=== PATIENT | male | born 1950 | race African-American/Black ===

== ENCOUNTER 2018-11-18 14:27 | Inpatient (IN) ==
[2018-11-18 10:28] LABS: HEMOGLOBIN 14.5 g/dL (14.0-18.0); MCH 32.4 PG (27-31); MCHC 33.7 g/dL (33-37); MPV 10.7 FL (7.4-10.4); RBC 4.48 XMIL (4.7-6.1); RDW 12.2 % (11.5-14.5); WBC 18.66 X1000 (4.8-10.8)
[2018-11-18 10:47] LABS: AGAP 13; BUN 26 mg/dL (8-22); CALCIUM 9.1 mg/dL (8.8-10.2); CHLORIDE 103 mmol/L (98-107); COSMO 285; CREATININE 1.4 mg/dL (0.7-1.2); ESTIMATED GFR > 60; GLUCOSE 141 mg/dL (70-104); SODIUM 139 mmol/L (136-145); TCO2 23 mmol/L (25-35)
[2018-11-18] MEDS ORDERED: ASPIRIN PO ONE (14:56)
--- NOTE | 2018-11-18 15:01 | EKG Report ---
Test Performed on : 11/18/2018 2:58:42 PM Test Reason : SOB Blood Pressure : / mmHG Vent. Rate : 140 BPM Atrial Rate : 140 BPM P-R Int : 118 ms QRS Dur : 134 ms QT Int : 308 ms P-R-T Axes : 073 251 043 degrees QTc Int : 470 ms Sinus tachycardia. Possible Left atrial enlargement Right bundle branch block Abnormal ECG When compared with ECG of 23-OCT-2018 08:41, Vent. rate has increased BY 69 BPM T wave inversion now evident in Anterior leads Nonspecific T wave abnormality no longer evident in Lateral leads Unconfirmed Result
[2018-11-18] MEDS ORDERED: VANCOMYCIN 1 GM/NS 1 GM/250 ML IVPB IV ONE (15:07)
[2018-11-18] MEDS ORDERED: NS 1,000 ML IV ONE ×2 (15:07→16:07)
[2018-11-18] MEDS ORDERED: NS 500 ML IV ONE (15:07)
--- NOTE | 2018-11-18 15:25 | Diag Imaging Result Doc PS360 ---
CHEST-1 VIEW - 11/18/2018 INDICATION: fever,sob COMPARISON: 02/12/2018 FINDINGS: Stable CABG changes. Stable ossified granuloma in the left lung base. No infiltrates or edema. Heart size is top normal. IMPRESSION: No acute disease or change from prior. Electronically signed by Bowen Garcia 11/18/2018 3:23 PM
[2018-11-18] MEDS ORDERED: TYLENOL PO ONE (15:43)
--- NOTE | 2018-11-18 15:43 | PROVIDER DOCUMENTATION ---
This chart was entered by Tamiko Munoz Scribe, acting as scribe for Martin Polk MD. HPI-Fever - General Chief Complaint: Fever Stated Complaint: fall Time Seen by Provider: 11/18/18 15:05 Source: patient, family, EMS Allergies/Adverse Reactions: Patient Allergies Allergy/AdvReac Type Severity Reaction Status Date / Time sulfamethoxazole Allergy Severe HIVES Verified 11/18/18 08:55 [From Bactrim] trimethoprim [From Bactrim] Allergy Severe HIVES Verified 11/18/18 08:55 Home Medications: Home Medication List Medication Instructions Recorded Confirmed Last Taken Type Aspirin 325 mg PO DAILY #0 tablet 11/20/13 11/18/18 10/28/18 08:00 Rx Hydralazine [Apresoline] 50 mg PO TID 07/11/16 11/18/18 10/29/18 05:30 History Levothyroxine [Synthroid] 150 microgm PO DAILY 07/11/16 11/18/18 10/28/18 08:00 History Meloxicam [Mobic] 15 mg PO DAILY 07/11/16 11/18/18 10/28/18 08:00 History Metoprolol Succinate E.r. [Toprol 50 mg PO BID 07/11/16 11/18/18 10/29/18 05:30 History Xl] PRAVAstatin [Pravachol] 80 mg PO QHS #90 tab 02/16/18 11/18/18 10/28/18 21:00 Rx Clopidogrel [Plavix] 75 mg PO DAILY 10/23/18 11/18/18 10/28/18 08:00 History Losartan/Hydrochlorothiazide 1 each PO DAILY 10/23/18 11/18/18 10/28/18 08:00 History [Losartan-Hctz 50-12.5 mg Tab] Hydrocodone/APAP 7.5 mg/325 mg 1 ea PO Q6H PRN PRN #10 tab 10/29/18 11/18/18 Unknown Rx [Capac-7.5] Cilostazol 50 mg PO DAILY 11/18/18 11/18/18 Unknown History - History of Present Illness-Fever Nature of Presenting Problem: 67 yom presents to ed with cc of fever of 102.5. Pt reports he fell out of bed this am and onto the floor. Pt reports he has a blood clot in left leg and is scheduled to get it removed tomorrow.. Reports sob. Fever Severity/Quality: reports: greater than 102 F Onset/Duration: reports: this morning Timing: reports: still present Severity: reports: moderate Review of Systems - Adult - REVIEW OF SYSTEMS - ADULT Constitutional: reports: chills, fever, other (diaphoresis). denies: fatique, weight gain, weight loss Eyes: reports: no symptoms reported Ears, Nose, Mouth & Throat: denies: ear pain, sinus problem, throat pain Cardiovascular: reports: palpitations (HR 146 on arrival). denies: chest pain, irregular heart rate, orthopnea, syncope Respiratory: reports: shortness of breath. denies: cough, dyspnea on exertion, pleurisy, wheezing Gastrointestinal: denies: abdominal pain, diarrhea, nausea, vomiting Genitourinary: denies: dysuria, discharge, flank pain, frequent UTI's, hematuria , urinary retention, urgency Musculoskeletal: denies: frequent leg cramps, joint pain, joint swelling, muscle aches, muscle weakness, neck pain Integumentary: reports: no symptoms reported Neurological: reports: no symptoms reported Psychiatric: reports: no symptoms reported Endocrine: denies: cold intolerance, heat intolerance, increased hunger Hematologic/Lymphatic: reports: see HPI, blood clots. denies: low blood count, lymphedema, prolonged bleeding, swollen lymph nodes Allergic/Immunologic: reports: no symptoms reported All Other Systems: Reviewed and Negative Past History - Adult - PAST MEDICAL HISTORY-ADULT Review of Records: reports: Nursing Assessment Review, Medications Reviewed Major Childhood Illnesses: reports: denies history Cardiovascular: reports: HTN, hyperlipidemia Respiratory: reports: denies history Gastrointestinal: reports: GERD Obstetrical/Gynecological: reports: denies history Genitourinary: reports: denies history Musculoskeletal: reports: chronic pain Neurological: reports: denies history Endocrine/Immune: reports: thyroid disorder Other Conditions: reports: denies history - PRIOR SURGERIES/PROCEDURES Surgical/Procedure History: reports: CABG, cardiac stent, other - IMMUNIZATION STATUS Childhood Immunizations: See Nurse Assessment Flu Vaccine: See Nurse Assessment - FAMILY HISTORY Family History: reviewed, not pertinent Physical Exam-General - PHYSICAL EXAM-ADULT Initial Vital Signs Reviewed: Yes - CONSTITUTIONAL General Appearance: appears well, alert, moderate distress, other (very diaphoretic) - EYES Eyes: PERRL/EOMI, pink conjunctivae - HEAD, EARS, NOSE, MOUTH & THROAT HENMT: moist mucous membranes - NECK Neck: non-tender, full range of motion, supple, normal inspection - RESPIRATORY Respiratory: chest non-tender, lungs clear, normal breath sounds, no pleuratic chest pain, no respiratory distress, no accessory muscle use - CARDIOVASCULAR Cardiovascular: tachycardia - GASTROINTESTINAL (ABDOMEN) Abdominal Exam: non tender, soft, no organomegaly, no pulsatile mass - MUSCULOSKELETAL Back Exam: normal inspection Extremity: normal range of motion, non-tender - SKIN Integumentary: normal color, normal turgor, diaphoresis - NEUROLOGIC Neurologic: grossly normal - PSYCHIATRIC Psych/Mental Status: normal mood/affect, normal thought content, normal thought process, oriented x 3 Progress - PLAN OF CARE/RESULTS Progress/Plan/Lab Results: Vital Signs - 8 hr 11/18/18 14:51 11/18/18 16:22 11/18/18 16:30 Temperature 102.0 F H Pulse Rate 146 H 114 H 113 H Respiratory Rate 22 23 25 H Blood Pressure 118/63 118/72 O2 Sat by Pulse Oximetry 97 95 91 L 11/18/18 16:32 11/18/18 16:40 11/18/18 16:47 Temperature Pulse Rate 122 H 113 H 111 H Respiratory Rate 34 H 28 H 22 Blood Pressure 122/65 102/60 O2 Sat by Pulse Oximetry 94 L 94 L 94 L 11/18/18 16:50 11/18/18 17:00 11/18/18 17:02 Temperature Pulse Rate 115 H 113 H 113 H Respiratory Rate 19 30 H 28 H Blood Pressure 138/80 O2 Sat by Pulse Oximetry 95 94 L 94 L 11/18/18 17:10 11/18/18 17:18 11/18/18 17:20 Temperature Pulse Rate 112 H 115 H 115 H Respiratory Rate 26 H 26 H 21 Blood Pressure 114/75 O2 Sat by Pulse Oximetry 93 L 91 L 91 L 11/18/18 17:30 11/18/18 17:32 11/18/18 17:40 Temperature Pulse Rate 105 H 112 H 113 H Respiratory Rate 25 H 30 H 28 H Blood Pressure 117/74 O2 Sat by Pulse Oximetry 95 93 L 92 L 11/18/18 17:47 11/18/18 17:50 11/18/18 17:57 Temperature 99.2 F Pulse Rate 110 H 108 H Respiratory Rate 22 23 Blood Pressure 129/76 O2 Sat by Pulse Oximetry 92 L 92 L 11/18/18 18:00 11/18/18 18:02 11/18/18 18:10 Temperature Pulse Rate 107 H 109 H 105 H Respiratory Rate 26 H 23 23 Blood Pressure 125/73 O2 Sat by Pulse Oximetry 96 94 L 95 11/18/18 17:58 Influenza Screen - Final Nasopharyngeal Laboratory Results - last 24 hr 11/18/18 11/18/18 11/18/18 14:35 15:10 15:32 WBC 11.34 H RBC 4.38 L Hgb 14.3 Hct 41.4 L MCV 94.5 MCH 32.6 H MCHC 34.5 RDW Std Deviation 12.2 Plt Count 203 MPV 10.8 H Immature Gran % (Auto) 0.3 Neut % (Auto) 92.1 H Lymph % (Auto) 5.0 L Mclean % (Auto) 2.5 Eos % (Auto) 0.1 Baso % (Auto) 0.0 Immature Gran # (Auto) 0.03 Neut # (Auto) 10.45 H Lymph # (Auto) 0.57 L Mclean # (Auto) 0.28 Eos # (Auto) 0.01 Baso # (Auto) 0.00 PT INR PTT (Actin FS) Specimen Type Sample Site pH pCO2 pO2 HCO3 Base Excess Oxyhemoglobin ABG O2 Sat (Calculated) ABG O2 Saturation ABG Carboxyhemoglobin ABG Methemoglobin Mike Test A-a O2 Difference Total Hemoglobin Lactate Liter Flow Blood Gas Modality FiO2 % Sodium Potassium Chloride Carbon Dioxide Anion Gap BUN Creatinine Estimated GFR/1.73 m2 BUN/Creatinine Ratio Glucose POC Glucose 194 H D Calculated Osmolality Calcium Total Bilirubin AST ALT Alkaline Phosphatase Creatine Kinase Troponin T Zln-U-Apezvbqvyna Pept Total Protein Albumin Globulin Albumin/Globulin Ratio Plasma Lactate 3.0 H Urine Source Urine Color Urine Turbidity Urine pH Ur Specific [place] Urine Protein Ur Glucose (Stick) Ur Ketones (Stick) Urine Blood Urine Nitrite Urine Bilirubin Urobilinogen Dipstick Urine Leukocytes Urine WBC (Auto) Urine RBC (Auto) U Epithel Cells (Auto) Urine Bacteria (Auto) 11/18/18 11/18/18 11/18/18 15:32 15:32 15:32 WBC RBC Hgb Hct MCV MCH MCHC RDW Std Deviation Plt Count MPV Immature Gran % (Auto) Neut % (Auto) Lymph % (Auto) Mclean % (Auto) Eos % (Auto) Baso % (Auto) Immature Gran # (Auto) Neut # (Auto) Lymph # (Auto) Mclean # (Auto) Eos # (Auto) Baso # (Auto) PT 14.8 INR 1.08 PTT (Actin FS) 29.5 Specimen Type Sample Site pH pCO2 pO2 HCO3 Base Excess Oxyhemoglobin ABG O2 Sat (Calculated) ABG O2 Saturation ABG Carboxyhemoglobin ABG Methemoglobin Mike Test A-a O2 Difference Total Hemoglobin Lactate Liter Flow Blood Gas Modality FiO2 % Sodium 139 Potassium 3.5 Chloride 104 Carbon Dioxide 19 L Anion Gap 16 BUN 30 H Creatinine 1.7 H Estimated GFR/1.73 m2 49 BUN/Creatinine Ratio 18 Glucose 190 H POC Glucose Calculated Osmolality 289 Calcium 9.4 Total Bilirubin 1.88 H AST 14 ALT 20 Alkaline Phosphatase 101 Creatine Kinase 191 Troponin T Hdd-C-Eeigxavuyhv Pept 324 H Total Protein 7.3 Albumin 4.2 Globulin 3.1 Albumin/Globulin Ratio 1.4 Plasma Lactate Urine Source Urine Color Urine Turbidity Urine pH Ur Specific [place] Urine Protein Ur Glucose (Stick) Ur Ketones (Stick) Urine Blood Urine Nitrite Urine Bilirubin Urobilinogen Dipstick Urine Leukocytes Urine WBC (Auto) Urine RBC (Auto) U Epithel Cells (Auto) Urine Bacteria (Auto) 11/18/18 11/18/18 11/18/18 15:32 15:40 16:35 WBC RBC Hgb Hct MCV MCH MCHC RDW Std Deviation Plt Count MPV Immature Gran % (Auto) Neut % (Auto) Lymph % (Auto) Mclean % (Auto) Eos % (Auto) Baso % (Auto) Immature Gran # (Auto) Neut # (Auto) Lymph # (Auto) Mclean # (Auto) Eos # (Auto) Baso # (Auto) PT INR PTT (Actin FS) Specimen Type ARTERIAL Sample Site R RADIAL pH 7.44 pCO2 29 L pO2 78 HCO3 22.3 Base Excess -3.2 L Oxyhemoglobin 94.0 L ABG O2 Sat (Calculated) 18.7 ABG O2 Saturation 96.9 ABG Carboxyhemoglobin 1.70 ABG Methemoglobin 1.2 Mike Test YES A-a O2 Difference 85.0 Total Hemoglobin 14.1 Lactate 1.80 Liter Flow 2.0 Blood Gas Modality CANNULA FiO2 % 28.0 Sodium Potassium Chloride Carbon Dioxide Anion Gap BUN Creatinine Estimated GFR/1.73 m2 BUN/Creatinine Ratio Glucose POC Glucose Calculated Osmolality Calcium Total Bilirubin AST ALT Alkaline Phosphatase Creatine Kinase Troponin T < 0.010 Mqm-N-Slkiyqnngcv Pept Total Protein Albumin Globulin Albumin/Globulin Ratio Plasma Lactate Urine Source CATH Urine Color ORANGE Urine Turbidity HAZY Urine pH 5.5 Ur Specific [place] 1.020 Urine Protein 100 A Ur Glucose (Stick) 500 A Ur Ketones (Stick) NEGATIVE Urine Blood MODERATE A Urine Nitrite NEGATIVE Urine Bilirubin NEGATIVE Urobilinogen Dipstick NORMAL Urine Leukocytes LARGE A Urine WBC (Auto) TNTC A Urine RBC (Auto) <10 U Epithel Cells (Auto) <10 Urine Bacteria (Auto) 4+ 11/18/18 18:06 WBC RBC Hgb Hct MCV MCH MCHC RDW Std Deviation Plt Count MPV Immature Gran % (Auto) Neut % (Auto) Lymph % (Auto) Mclean % (Auto) Eos % (Auto) Baso % (Auto) Immature Gran # (Auto) Neut # (Auto) Lymph # (Auto) Mclean # (Auto) Eos # (Auto) Baso # (Auto) PT INR PTT (Actin FS) Specimen Type Sample Site pH pCO2 pO2 HCO3 Base Excess Oxyhemoglobin ABG O2 Sat (Calculated) ABG O2 Saturation ABG Carboxyhemoglobin ABG Methemoglobin Mike Test A-a O2 Difference Total Hemoglobin Lactate Liter Flow Blood Gas Modality FiO2 % Sodium Potassium Chloride Carbon Dioxide Anion Gap BUN Creatinine Estimated GFR/1.73 m2 BUN/Creatinine Ratio Glucose POC Glucose Calculated Osmolality Calcium Total Bilirubin AST ALT Alkaline Phosphatase Creatine Kinase Troponin T Say-V-Arzuajmokbe Pept Total Protein Albumin Globulin Albumin/Globulin Ratio Plasma Lactate 1.4 Urine Source Urine Color Urine Turbidity Urine pH Ur Specific [place] Urine Protein Ur Glucose (Stick) Ur Ketones (Stick) Urine Blood Urine Nitrite Urine Bilirubin Urobilinogen Dipstick Urine Leukocytes Urine WBC (Auto) Urine RBC (Auto) U Epithel Cells (Auto) Urine Bacteria (Auto) Orders Category Date Time Status Admit - [facility] Routine AdmDCTranf 11/18/18 18:12 Active Cardiac Monitoring DIRECTED Care 11/18/18 14:57 Active [place] Insertion ORDERED Care 11/18/18 15:07 Inactive IV Insertion ORDERED Care 11/18/18 15:06 Completed Intake and Output-Strict ORDERED Care 11/18/18 15:07 Active Notify MD of + Sepsis Screen NOW Care 11/18/18 15:06 Active Notify Physician As Ordered Care 11/18/18 15:06 Active Oxygen Therapy- ED Nursing DIRECTED Care 11/18/18 14:57 Active Repeat Vital Signs .Blood Pressure Care 11/18/18 15:07 Active Repeat Vital Signs .Heart Rate Care 11/18/18 15:07 Active Repeat Vital Signs .Oxygen Saturation Care 11/18/18 15:07 Active Repeat Vital Signs .Respiratory Rate Care 11/18/18 15:07 Active Repeat Vital Signs .Temp Care 11/18/18 15:07 Active Resuscitation Status Routine Care 11/18/18 18:12 Ordered Saline Loc NOW Care 11/18/18 14:57 Active CHEST-1 VIEW [RAD] Stat Exams 11/18/18 15:06 Completed ABG [RESP] Routine Lab 11/18/18 15:40 Completed BLOOD CULTURE [BLDCUL] Stat Lab 11/18/18 15:15 Results CBC WITH ELECTRONIC DIFF [HEME] Stat Lab 11/18/18 15:32 Completed CK PROFILE [SP CHEM] Stat Lab 11/18/18 15:32 Completed COMPREHENSIVE METABOLIC PANEL [CHEM] Stat Lab 11/18/18 15:32 Completed INFLUENZA SCREEN A/B Stat Lab 11/18/18 17:58 Completed LACTATE, PLASMA [CHEM] Lab 11/18/18 18:06 Completed LACTATE, PLASMA [CHEM] Lab 11/18/18 21:15 Uncollected LACTATE, PLASMA [CHEM] Stat Lab 11/18/18 15:10 Completed PRO B-NATRIURETIC PEPTIDE Stat Lab 11/18/18 15:32 Completed PROTIME WITH INR [COAG] Stat Lab 11/18/18 15:32 Completed PTT [COAG] Stat Lab 11/18/18 15:32 Completed TROPONIN T Stat Lab 11/18/18 15:32 Completed URINALYSIS W/POSS RFLX CULT [URINALYSIS] Stat Lab 11/18/18 16:35 Completed URINE CULTURE [RM] Routine Lab 11/18/18 17:23 Received 0.9% Sodium Chloride Inj [Ns] 1,000 ml Med 11/18/18 16:07 Discontinued IV 999 mls/hr 0.9% Sodium Chloride Inj [Ns] 1,000 ml Med 11/18/18 15:07 Discontinued IV As Directed 0.9% Sodium Chloride Inj [Ns] 500 ml Med 11/18/18 15:07 Discontinued IV 999 mls/hr Acetaminophen [Tylenol] Med 11/18/18 15:43 Discontinued 650 mg PO NOW ONE Aspirin Med 11/18/18 14:56 Discontinued 325 mg PO NOW ONE Piperacillin/Tazobactam [Zosyn] 3.375 gm Med 11/18/18 16:08 Discontinued 0.9% Sodium Chloride Inj [Ns] 50 ml IV NOW Vancomycin 1 gm/Ns Med 11/18/18 15:07 Discontinued 1 gm in 250 ml IV NOW CP/SOB/Palp >45 yrs of Age Stat Oth 11/18/18 14:56 Ordered Oxygen Device Stat Oth 11/18/18 15:06 Completed EKG [EKG] Stat Ther 11/18/18 14:57 Draft Transfer/Admit Order [TRANSFER] Routine Transfer 11/18/18 18:[address] Rodrigo dejesus at [id number] Result Diagrams: 11/18/18 15:32 11/18/18 15:32 - EKG 1 Time of EKG reading by physician:: 14:58 EKG Read and Signed by:: Martin Polk EKG Interpretation (*Must complete 3 of following elements*): Abnormal (poss lae ) Rate: 140 Rhythm: sinus tachy Cyril: normal QRS: RBB VT Interval: normal - XRAY 1 XRAY: Bilateral XRAY Study: Chest Impression: Normal (IMPRESSION: No acute disease or change from prior. Electronically signed by Bowen Garcia 11/18/2018 3:23 PM) Departure - Departure Date of Disposition Decision: 11/18/18 Time of Disposition Decision: 17:50 DIAGNOSIS: Sepsis, UTI (urinary tract infection), Renal insufficiency Disposition: ADMITTED INPATIENT 09 Certified Medical Emergency: Emergent Condition: Stable Referrals and Follow-Ups: Pete Wallace MD [Primary Care Provider] - - Critical Care Note This patient required my direct & personal management of CC.: Yes Total Time (mins): 45 Critical Care Statement: This patient required my direct personal management to treat or rule out processes, the absence of which, could potentiallly result in sudden, clinically significant life or limb threatening deterioration. Attestation - Physician/ MONIQUE Attestation Patient care was provided by Advanced Practice Provider:: No The physician spent face to face time with patient:: Yes Advanced Practice Provider documentation review:: Supervising physician onsite and consulted in the evaluation and care of this patient. The physician did have a face to face encounter with the patient. Sepsis: Tissue Perfusion Assmt - Physical Exam Assessment Date: 11/18/18 Time Assessment Initialized: 18:30 Vital Signs: Last Vital Signs Temp 99.2 F 11/18/18 17:57 Pulse 105 H 11/18/18 18:10 Resp 23 11/18/18 18:10 BP 125/73 11/18/18 18:02 Pulse Ox 95 11/18/18 18:10 Height 6 ft Weight 95.254 kg Lung Sounds:: lungs clear Heart Sounds:: Regular Capillary Refill Time: Less Than 2 Seconds Peripheral Pulse Evaluation:: radial (R): 2+, radial (L): 2+ Skin Exam:: turgor good - Impression Impression:: Tissue Perfusion Adequate This chart was documented by the indicated scribe, (Tamiko Munoz Scribe) and accurately reflects the services I performed and decisions made by me, Martin Polk MD, as attested by the provider's signature.
[2018-11-18 15:50] LABS: ALLEN TEST YES; BE -3.2 mmoll (-3.0-3.0); BLOOD TYPE ARTERIAL; HCO3-(ACT) 22.3 mmoll (20.0-26.0); METHB 1.2 % (0.0-1.5); O2(CT) 18.7 mL/dL (15.0-23.0); PCO2(98.6) 29 mmHg (35-45); PO2(98.6) 78 mmHg (60-100); SAMPLE BLOOD; SAO2 96.9 % (95.0-100.0); THB 14.1 g/dL (11.5-17.4); pH(98.6) 7.44 (7.35-7.45)
[2018-11-18 15:53] LABS: MODALITY CANNULA
[2018-11-18 15:56] LABS: EOS# 0.01 X1000 (0.0-0.7); EOS% 0.1 % (0.0-10.0); HEMATOCRIT 41.4 % (42.0-52.0); HEMOGLOBIN 14.3 g/dL (14.0-18.0); IMM GRAN# 0.03 X1000 (0.0-0.04); IMM GRAN% 0.3 % (0.0-0.5); LYMPH# 0.57 X1000 (1.2-3.4); MCH 32.6 PG (27-31); MCHC 34.5 g/dL (33-37); MCV 94.5 FL (81-99); MONO# 0.28 X1000 (0.11-0.59); MONO% 2.5 % (1.7-9.3); MPV 10.8 FL (7.4-10.4); NEUT# 10.45 X1000 (1.4-6.5); NEUT% 92.1 % (42.2-75.2); PLT 203 X1000 (130-400); RBC 4.38 XMIL (4.7-6.1); RDW 12.2 % (11.5-14.5); WBC 11.34 X1000 (4.8-10.8)
[2018-11-18 16:00] LABS: INR 1.08; PROTIME 14.8 Seconds (11.0-16.0)
[2018-11-18 16:01] LABS: PTT 29.5 Seconds (22.3-41.8)
[2018-11-18] MEDS ORDERED: ZOSYN 3.375 GM in NS 50 ML IV ONE (16:08)
[2018-11-18 16:14] LABS: ALB/GLOB RATIO 1.4; ALBUMIN 4.2 g/dL (3.5-5.0); CALCIUM 9.4 mg/dL (8.8-10.2); CREATININE 1.7 mg/dL (0.7-1.2); POTASSIUM 3.5 mmol/L (3.5-5.1); TOTAL BILIRUBIN 1.88 mg/dL (0.20-1.00); TOTAL PROTEIN 7.3 g/dL (6.3-8.3)
[2018-11-18 17:03] LABS: URINE SOURCE CATH
[2018-11-18 17:09] LABS: BILIRUBIN URINE NEGATIVE (NEGATIVE); BLOOD URINE MODERATE (NEGATIVE); COLOR ORANGE; GLUCOSE URINE 500 mg/dL (NEGATIVE); KETONE URINE NEGATIVE (NEGATIVE); LEUKOCYTES URINE LARGE (NEGATIVE); NITRITE URINE NEGATIVE (NEGATIVE); PH URINE 5.5; PROTEIN URINE 100 mg/dL (NEGATIVE); TURBIDITY URINE HAZY (CLEAR); UROBILINOGEN URINE NORMAL (NORMAL)
[2018-11-18 17:10] LABS: UR EPITHELIAL CELLS <10 /HPF (<10); URINE BACTERIA 4+ /HPF; URINE RBC <10 /HPF (<10); URINE WBC TNTC /HPF (<10)
--- NOTE | 2018-11-18 23:45 | HISTORY AND PHYSICAL ---
CHIEF COMPLAINT: Fever, fall, near-syncope. HISTORY OF PRESENT ILLNESS: A 66-year-old male, brought into the ER with a fever of 102. He almost had near-syncope. He had recently right leg peripheral arterial disease. Workup done by Dr. Adler. Anyhow, he had a white cell count, probable UTI. Influenza infection was ruled out. He was dehydrated. He was tachycardic. Hemodynamics were stable. He was seen in the emergency room. He was admitted to the hospital with near syncope due to hypotension due to UTI, probably prostatitis. As a result, a hospital admission was warranted. The patient was seen by Dr. Adler for peripheral arterial disease on 10/29/2018. He had a right popliteal occlusion, with claudication. Waiting for a bypass surgery. Venous mapping was done. It has been scheduled on Saturday. Anyhow, he needs to be worked up for his UTI. Discussed with family at bedside. As a result, a hospital admission was warranted. PAST MEDICAL HISTORY: Aneurysm of abdominal aorta at 2.8 cm. Carotid artery stenosis, right side, 60%. CAD, hypertension, hypothyroidism. Nicotine abuse. Peripheral arterial disease. Bilateral popliteal occlusion, right worse than left side. Hyperlipidemia. Elevated PSA. Right lacunar stroke in 2018, PAST SURGICAL HISTORY: C-spine surgery, back surgery, right foot surgery, cardiac stent in the circumflex artery. 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 Status post right plantar wart excision. Bypass surgery in 2013. MEDICATIONS: In my office: Aspirin 325 daily, Pletal 50 p.o. b.i.d., Plavix 75 daily, hydralazine 50 three times daily. Hyzaar 50/12.5 daily. Metoprolol 50 mg daily. Mobic 15 daily. Protonix 40 daily. Pravachol 40 daily. Synthroid 150 mcg daily. Tramadol 50 t.i.d. ALLERGIES: Bactrim. SOCIAL HISTORY: , 5 children. Lives in [place]. Retired. Quit smoking in 2013. No alcohol. No drug abuse. FAMILY HISTORY: Father at the age of 78. Mom of diabetic complications at 63. HEALTH MAINTENANCE: Flu vaccine refused. Last physical exam in December 2017. Colonoscopy was declined. PHYSICAL EXAMINATION: VITAL SIGNS: Temperature is 102 degrees, tachycardic. Hemodynamics were stable. He was extremely diaphoretic at the time of presentation. HEENT: Atraumatic, normocephalic. Pupils equal, react to light. TMs normal. Nose and throat within normal limits. NECK: Supple. No lymphadenopathy. No goiter. CHEST: Bilateral air entry. HEART: Sounds are regular. ABDOMEN: Belly is soft, nontender. Good bowel sounds. RECTAL: Deferred. EXTREMITIES: Decreased pulses on both sides. No signs of gangrene. No obvious neurological deficits. INVESTIGATIONS: White cell count 11, hematocrit 41, platelets 203,000. PT/INR is normal. ABG: pH is 7.44, pCO2 29, PO2 78 on 28%. SMA-7: BUN 30, creatinine 1.7, glucose 194. LFTs were normal. Urinalysis positive for infection. Blood cultures: Flu was pending. Blood cultures are pending. ASSESSMENT AND PLAN: 1. A 67-year-old male who came in with a fever 102, leukocytosis, with hypertension and near-syncope due to urinary tract infection. Rule out prostatitis. Plan is IV ceftriaxone. Unable to take Bactrim. We will check the PSA. 2. Dehydration. IV fluids. 3. Reconcile home medicines. 4. Deep vein thrombosis and gastrointestinal prophylaxis. As per the order sheet, with Lovenox and Protonix. 5. Coronary artery disease, status post bypass surgery. Currently, on aspirin and nitroglycerin. Continue to abstain from smoking. 6. Hypertension, on a combination of metoprolol, Hyzaar, and hydralazine. 7. Hyperlipidemia, on Pravachol 80. Last LDL 98. 8. Hypothyroidism, on Synthroid. 9. Elevated PSA. Previous biopsy was negative in 12/2015, done by Dr. Ying. 10. Bilateral calf pain due to claudication from the popliteal artery occlusion. Once he is stable, we will ask Dr. Adler to do the surgery on Saturday. 11. We will reconcile home medicines, and also health maintenance. Discussed with the family at bedside. We will follow up. cc: Gurwinder Wallace MD
[2018-11-19] MEDS: SODIUM CHLORIDE 0.9% INJ SCH (01:40)
[2018-11-19] MEDS: LOVENOX SUBQ SCH (01:41)
[2018-11-19] MEDS: NS 1,000 ML IV SCH ×2 (01:41→16:09)
[2018-11-19] MEDS: PROTONIX IV SCH (01:41)
[2018-11-19] MEDS: ROCEPHIN 1 GM in NS 50 ML IV SCH (01:41)
[2018-11-19] MEDS: HUMALOG SUBQ SCH ×3 (06:00→21:34)
[2018-11-19] MEDS: SYNTHROID PO SCH (06:00)
[2018-11-19 07:13] LABS: HEMATOCRIT 37.2 % (42.0-52.0); HEMOGLOBIN 12.5 g/dL (14.0-18.0); MCHC 33.6 g/dL (33-37); MCV 98.2 FL (81-99); MPV 10.6 FL (7.4-10.4); RBC 3.79 XMIL (4.7-6.1); RDW 12.6 % (11.5-14.5); WBC 16.36 X1000 (4.8-10.8)
[2018-11-19 07:19] LABS: HEMOGLOBIN A1C 5.1 % (4.8-6.0)
--- NOTE | 2018-11-19 07:38 | EKG Report ---
Test Performed on : 11/19/2018 06:57:08 AM Test Reason : cp Blood Pressure : / mmHG Vent. Rate : 071 BPM Atrial Rate : 071 BPM P-R Int : 162 ms QRS Dur : 148 ms QT Int : 464 ms P-R-T Axes : 076 014 048 degrees QTc Int : 504 ms Normal sinus rhythm. Possible Left atrial enlargement Right bundle branch block Abnormal ECG When compared with ECG of 18-NOV-2018 14:58, (Unconfirmed) Vent. rate has decreased BY 69 BPM QRS axis shifted right T wave inversion no longer evident in Anterior leads T wave amplitude has decreased in Lateral leads Confirmed by Michael LAZCANO, Star Morales ([id number]) on 11/19/2018 8:42:33 AM
[2018-11-19 07:48] LABS: AGAP 11; BUN 25 mg/dL (8-22); CHLORIDE 108 mmol/L (98-107); CK PROFILE 358 U/L (24-204); COSMO 282; CREATININE 1.1 mg/dL (0.7-1.2); ESTIMATED GFR > 60; GLUCOSE 95 mg/dL (70-104); POTASSIUM 4.3 mmol/L (3.5-5.1); SODIUM 139 mmol/L (136-145); TCO2 20 mmol/L (25-35)
[2018-11-19 08:31] LABS: CK INDEX 1.3 (0.0-2.5); CK-MB 4.66 ng/mL (0.0-5.0)
[2018-11-19] MEDS ORDERED: ASPIRIN PO SCH (09:00)
[2018-11-19] MEDS: TOPROL XL PO SCH ×2 (11:11→21:35)
[2018-11-19] MEDS: PLAVIX PO SCH (11:11)
--- NOTE | 2018-11-19 11:29 | CONSULTATION ---
DATE OF CONSULTATION: 11/19/2018 IMPRESSION: 1. Atherosclerotic coronary disease with history of previous coronary bypass grafting 2013. Patient has had no recurrence of angina. 2. Currently admitted with urinary tract infection with recent fever and malaise as well as near syncopal episode. Evaluation has demonstrated evidence of urinary tract infection. This may be related to Johnston catheter placed last month. 3. Peripheral vascular disease. Patient has reportedly bilateral popliteal occlusion worse on the right and has failed percutaneous efforts to revascularize. He has been scheduled for surgical revascularization of the right lower extremity. Preoperative cardiac risk assessment requested. 4. History of lacunar cerebrovascular accident 1 year ago with no residual deficit. 5. Atherosclerotic carotid disease with moderate right carotid artery stenosis. 6. Hypertension. 7. Hyperlipidemia. RECOMMENDATIONS: 1. Echocardiography. 2. Continue medical management of patient's coronary atherosclerosis. 3. Patient appears to be acceptable risk from a cardiac standpoint for right lower extremity revascularization procedure. HISTORY: This 66-year-old -[place] male a past history of previous coronary bypass surgery in 2013, hypertension, hyperlipidemia, peripheral vascular disease, and previous lacunar cerebrovascular accident in 2018, was admitted after he presented with recent malaise and fever. He had a near syncopal episode. He was found to have evidence of urinary tract infection and has been started on parental antibiotics. Cardiology consultation was requested for preoperative cardiac risk assessment, as he is being scheduled for elective right lower extremity revascularization surgery in the near future. He has history of peripheral vascular disease and significant stenosis in both popliteal arteries. Percutaneous efforts to revascularize his right lower extremity last month were unsuccessful. During that effort, he did have a Johnston catheter. He has been scheduled for right lower extremity revascularization surgery next week. However, he developed malaise and fever and had near syncopal episode prompting him to come in hospital this admission. There has been no recurrence of angina since his coronary bypass surgery. He denies any shortness of breath or orthopnea. PAST MEDICAL HISTORY: 1. Atherosclerotic coronary disease as outlined above. 2. Peripheral vascular disease. 3. Moderate right carotid artery stenosis. 4. Hypertension. 5. Hyperlipidemia. 6. Hypothyroidism. 7. Previous right lacunar stroke, 2018. 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 ALLERGIES: He is allergic or intolerant to Bactrim. MEDICATIONS PRIOR TO ADMISSION: As listed. SOCIAL HISTORY: He is . He lives in [place]. He quit smoking in 2013. He does not use alcohol. FAMILY HISTORY: Negative for premature coronary disease and positive for diabetes mellitus. REVIEW OF SYSTEMS: Pulmonary: Negative. Gastrointestinal: Negative. Constitutional: Noteworthy for fever, but otherwise negative. Remainder of review of systems negative/noncontributory with 14 total systems reviewed. PHYSICAL EXAMINATION: General: This is a pleasant, older, middle-aged -[place]ian male in no distress. Vital Signs: Blood pressure 155/78, heart rate 78 and regular, oxygen saturation 100% on room air. HEENT: Extraocular movements appear intact. Mucous membranes moist. Neck: Supple without jugular venous distention. There are no carotid bruits. Chest: Clear to auscultation bilaterally. Cardiac: Reveals a regular rate and rhythm without appreciable murmur, rub, or gallop. Abdomen: Soft. Bowel sounds audible. Abdomen is nontender. Extremities: Without edema. Pedal pulses are difficult to palpate bilaterally. Neurologic: Reveals him to be alert and fully oriented. Speech is fluent and moves all 4 extremities equally well. Skin: Warm and dry. Psychiatric: Reveals mood to be appropriate. ELECTROCARDIOGRAM: A 12-lead EKG demonstrates sinus tachycardia, left atrial abnormality, and right bundle- branch block. Repeat 12 lead EKG demonstrates normal sinus rhythm, left atrial abnormality, and right bundle-branch block. LABORATORY DATA: Includes a white blood cell count 16.36, hematocrit 37.2, hemoglobin 12.5, platelet count 172,000. Sodium 139, potassium 4.3, chloride 108, carbon dioxide 20, BUN 25, creatinine 1.1. Troponin less 0.01. Urinalysis with large amount of leukocytes. Chest x-ray reviewed and demonstrates no acute process. There is no evidence of pulmonary infiltrate. Heart size is upper normal. cc: MD Gurwinder Glaser MD
[2018-11-19 13:51] LABS: CK INDEX 1.3 (0.0-2.5); CK-MB 6.42 ng/mL (0.0-5.0)
--- NOTE | 2018-11-19 16:53 | ECHO REPORT ---
ORDER DATE: 11/19/2018 ECHOCARDIOGRAPHY: INDICATIONS: Coronary disease, history of bypass, hyperthyroidism, hypertension, surgery evaluation. FINDINGS: 1. The right atrium is mildly enlarged at 4 cm. 2. Mild tricuspid regurgitation. RV systolic pressure of 39. 3. Normal RV size and systolic function. 4. Mild pulmonic insufficiency. 5. Mild left atrial enlargement with a volume index of 29. 6. No mitral valve prolapse. Mild mitral regurgitation. 7. Normal LV size. End-diastolic dimension of 4.4 cm. Mild left ventricular hypertrophy with posterior and interventricular septal wall thickness of 1.4 cm each. Normal LV systolic function. Estimated EF of 60% to 65% with normal wall motion. 8. The aortic valve opens well. No evidence of stenosis or insufficiency. 9. The aorta appears somewhat enlarged at the root with a dimension of 4 cm. 10. No pericardial effusion seen. cc: MD Savanah Eric PA Jagan Reddy, MD
[2018-11-20] MEDS: SODIUM CHLORIDE 0.9% INJ SCH (01:02)
[2018-11-20] MEDS: PROTONIX IV SCH (01:02)
[2018-11-20] MEDS: LOVENOX SUBQ SCH (01:02)
[2018-11-20] MEDS: ROCEPHIN 1 GM in NS 50 ML IV SCH (01:02)
--- NOTE | 2018-11-20 01:05 | PROGRESS NOTE ---
DATE: 11/19/2018 SUBJECTIVE: The patient has apparently had a Johnston placed during the last admission, and he had a urinary tract infection. He denies of any other complaints. PHYSICAL EXAMINATION: On examination, temperature is 99.4 degrees, pulse is 78, blood pressure 115/78. HEENT: Within normal limits. Neck: Supple. JVD is not elevated. Chest: Clear to auscultation. Heart: Sounds are regular. Abdomen: Belly is soft, nontender. Good bowel sounds. Extremities: No signs of gangrene noted. Decreased pulses in the right leg. INVESTIGATIONS: CBC: White cell count 16.36, hematocrit 37, platelets 172,000. SMA-7: Sodium 139, potassium 4.3, chloride 108, BUN 25, creatinine 1.1, glucose 153. Cardiac index is negative. Troponin was negative. Urinalysis positive for infection. Cultures are growing gram-negative rods. ASSESSMENT AND PLAN: 1. Fever, leukocytosis, urinary tract infection due to indwelling Johnston catheter. Currently receiving IV ceftriaxone, and follow up on culture and sensitivity. Based on that, antibiotics will be adjusted. 2. Acute azotemia due to dehydration. IV fluids. Creatinine is coming down. 3. Right leg ischemia. Waiting for bypass surgery on Saturday. Dr. Adler wants a preop clearance, and we will consult Dr. Solis. 4. History of coronary artery disease with bypass surgery, currently stable on secondary prevention with aspirin, Plavix, and beta-blockers. 5. Deep venous thrombosis prophylaxis, on Lovenox. 6. Hypothyroidism, on Synthroid. 7. Hyperlipidemia, on pravastatin 80 mg daily. 8. Slowly reconcile home medications. I am going to restart blood pressure medicine once his hemodynamics are stable and will follow up on the labs in the morning. LEVEL OF DOCUMENTATION: 25 minutes. cc: Gurwinder Wallace MD
[2018-11-20] MEDS: NS 1,000 ML IV SCH ×2 (05:30→14:45)
[2018-11-20] MEDS: HUMALOG SUBQ SCH ×3 (06:30→20:16)
[2018-11-20] MEDS: SYNTHROID PO SCH (06:30)
[2018-11-20 07:09] LABS: HEMATOCRIT 39.4 % (42.0-52.0); HEMOGLOBIN 13.2 g/dL (14.0-18.0); MCH 32.5 PG (27-31); MCHC 33.5 g/dL (33-37); MPV 10.3 FL (7.4-10.4); RBC 4.06 XMIL (4.7-6.1); RDW 12.4 % (11.5-14.5); WBC 9.7 X1000 (4.8-10.8)
--- NOTE | 2018-11-20 07:19 | EKG Report ---
Test Performed on : 11/20/2018 07:07:08 AM Test Reason : known CAD Blood Pressure : / mmHG Vent. Rate : 064 BPM Atrial Rate : 064 BPM P-R Int : 158 ms QRS Dur : 152 ms QT Int : 478 ms P-R-T Axes : 063 -12 021 degrees QTc Int : 493 ms Normal sinus rhythm. Possible Left atrial enlargement Right bundle branch block Inferior infarct , age undetermined Abnormal ECG When compared with ECG of 19-NOV-2018 06:57, Inferior infarct is now present Confirmed by Michael LAZCANO, Star Morales ([id number]) on 11/21/2018 9:20:24 AM
[2018-11-20 07:40] LABS: AGAP 12; BUN 21 mg/dL (8-22); CALCIUM 8.1 mg/dL (8.8-10.2); CHLORIDE 106 mmol/L (98-107); COSMO 281; ESTIMATED GFR > 60; GLUCOSE 108 mg/dL (70-104); POTASSIUM 3.5 mmol/L (3.5-5.1); SODIUM 139 mmol/L (136-145); TCO2 21 mmol/L (25-35)
[2018-11-20] MEDS: TOPROL XL PO SCH ×2 (09:23→20:16)
[2018-11-20] MEDS: PLETAL PO SCH (09:23)
[2018-11-20] MEDS: PLAVIX PO SCH (09:23)
[2018-11-20] MEDS: ASPIRIN PO SCH (09:23)
[2018-11-20] MEDS: PRAVACHOL PO SCH (20:16)
--- NOTE | 2018-11-20 20:35 | PROGRESS NOTE ---
DATE: 11/20/2018 CARDIOLOGY FOLLOWUP NOTE: SUBJECTIVE: Patient continues without chest discomfort or shortness of breath. He relates feeling better. OBJECTIVE: Vital Signs: Blood pressure 156/82, heart rate 65, oxygen saturation 98% on room air. Chest: Clear to auscultation. Cardiac: Reveals a regular rate and rhythm without appreciable murmur or gallop. There is no peripheral edema. LABORATORY DATA: Includes a white blood cell count of 9.7, hematocrit 39.4, hemoglobin 13.2, platelet count 225,000. Sodium 139, potassium 3.5, chloride 106, carbon dioxide 21, BUN 21, creatinine 1.0, glucose 108. Initial troponin less than 0.01. Followup troponin less than 0.01. Echocardiography reports normal left ventricular ejection fraction. IMPRESSION: 1. Atherosclerotic coronary disease with history of previous coronary bypass graft in 2013. Patient continues without angina. 2. Currently admitted with urinary tract infection with associated fever, malaise and near syncopal episode. 3. Peripheral vascular disease. Patient has bilateral popliteal artery severe occlusive disease worse on the right which failed percutaneous efforts to revascularize. He is scheduled for surgical revascularization of the right lower extremity. 4. Previous lacunar cerebrovascular accident approximately 1 year ago with no residual defect. 5. Atherosclerotic carotid disease with moderate right carotid artery stenosis. 6. Hypertension. 7. Hyperlipidemia. RECOMMENDATIONS: 1. Continue medical management for patient's coronary atherosclerosis. He appears to be clinically stable from a standpoint of his coronary disease. 2. He should be acceptable perioperative cardiac risk for surgical revascularization of right lower extremity as planned. 3. Will see patient further on an as-needed basis. cc: MD Gurwinder Glaser MD MTDD
--- NOTE | 2018-11-20 22:46 | PROGRESS NOTE ---
DATE: 11/20/2018 SUBJECTIVE: The patient is a little better. I appreciated Dr. Solis's consult. He is much improved. PHYSICAL EXAMINATION: Vital Signs: Temperature is 98. Hemodynamics were stable. HEENT: Exam within normal limits. Neck: Supple. No lymphadenopathy. Chest: Clear. Heart: Sounds are regular. Extremities: No signs of gangrene noted. LABORATORY STUDIES: Unfortunately, he has E. coli in the urine, as well as in the blood. He has 2 blood cultures that are positive, and sensitive to Levaquin. ESBL negative. ASSESSMENT AND PLAN: 1. Urosepsis, due to indwelling Johnston catheter. Continue on IV ceftriaxone, sensitive to ESBL, negative to E. coli. Clinically, he is improving. 2. Peripheral arterial disease in the right leg. Waiting for bypass surgery on Saturday. Dr. Adler is going to plan to do, and Dr. Quinton Solis has already cleared for preop. Stable. Hopefully, by Saturday he will be ready. Will repeat the blood cultures on Saturday. Continue present medical regimen. LEVEL OF DOCUMENTATION: 25 minutes. cc: Gurwinder Wallace MD
[2018-11-21] MEDS: PROTONIX IV SCH (02:00)
[2018-11-21] MEDS: LOVENOX SUBQ SCH (02:00)
[2018-11-21] MEDS: ROCEPHIN 1 GM in NS 50 ML IV SCH (02:00)
[2018-11-21] MEDS: NS 1,000 ML IV SCH ×2 (03:00→09:46)
[2018-11-21] MEDS: HUMALOG SUBQ SCH ×4 (06:42→20:58)
[2018-11-21] MEDS: SYNTHROID PO SCH (06:42)
[2018-11-21 07:13] LABS: HEMATOCRIT 37.1 % (42.0-52.0); HEMOGLOBIN 12.5 g/dL (14.0-18.0); MCH 32.6 PG (27-31); MCHC 33.7 g/dL (33-37); MCV 96.9 FL (81-99); MPV 10.3 FL (7.4-10.4); RBC 3.83 XMIL (4.7-6.1); RDW 12.4 % (11.5-14.5); WBC 7.18 X1000 (4.8-10.8)
[2018-11-21 07:24] LABS: AGAP 9; BUN 16 mg/dL (8-22); CHLORIDE 107 mmol/L (98-107); COSMO 279; CREATININE 0.9 mg/dL (0.7-1.2); ESTIMATED GFR > 60; GLUCOSE 102 mg/dL (70-104); POTASSIUM 3.7 mmol/L (3.5-5.1); SODIUM 139 mmol/L (136-145); TCO2 23 mmol/L (25-35)
[2018-11-21] MEDS: ASPIRIN PO SCH (09:46)
[2018-11-21] MEDS: PLETAL PO SCH (09:46)
[2018-11-21] MEDS: PLAVIX PO SCH (09:46)
[2018-11-21] MEDS: TOPROL XL PO SCH ×2 (09:46→20:59)
--- NOTE | 2018-11-21 16:16 | PROGRESS NOTE ---
DATE: 11/21/2018 SUBJECTIVE: Patient is doing better. IV fluids was cut down. Hemodynamics were stable. REVIEW OF SYSTEMS: None reported. OBJECTIVE: Vital signs: On exam, temperature is 98 degrees, pulse is 63, blood pressure is 164/79. HEENT: Exam is within normal limits. Neck: Supple. Chest: Clear. Heart: Sounds are regular. Abdomen: Belly is soft, nontender. No signs of gangrene in either foot noted. LABS: CBC: White cell count 7.1, hematocrit 37, platelets 227. SMA 7: Sodium 139, potassium 3.7. BUN is 16, creatinine 0.9, glucose 102. A1c 5.1. Urine cultures, blood cultures positive for E coli. ASSESSMENT AND PLAN: 1. Urosepsis. Escherichia coli getting better. Continue on intravenous ceftriaxone. Repeat the blood cultures on Saturday. 2. Decrease intravenous fluids. 3. Peripheral artery disease in the right leg. Waiting for femoral-popliteal bypass. 4. History of heart disease. Dr. Solis has been cleared for preoperative clearance. Continue present medical therapy. LEVEL OF DOCUMENTATION: 25 minutes. cc: Gurwinder Wallace MD
[2018-11-21] MEDS: PRAVACHOL PO SCH (20:59)
[2018-11-22] MEDS: LOVENOX SUBQ SCH
[2018-11-22] MEDS: PROTONIX IV SCH
[2018-11-22] MEDS: ROCEPHIN 1 GM in NS 50 ML IV SCH (00:01)
[2018-11-22] MEDS: SYNTHROID PO SCH (06:18)
[2018-11-22] MEDS: HUMALOG SUBQ SCH ×3 (06:18→20:38)
[2018-11-22] MEDS: ASPIRIN PO SCH (08:53)
[2018-11-22] MEDS: PLETAL PO SCH (08:53)
[2018-11-22] MEDS: TOPROL XL PO SCH ×2 (08:53→20:38)
[2018-11-22] MEDS: NS 1,000 ML IV SCH (08:53)
[2018-11-22] MEDS: PLAVIX PO SCH (08:53)
--- NOTE | 2018-11-22 15:15 | PROGRESS NOTE ---
DATE: 11/22/2017 SUBJECTIVE: Patient is doing better. No complaints. REVIEW OF SYSTEMS: None reported. EXAMINATION: Vital Signs: Temperature Is 98 degrees, pulse is 64, blood pressure is 163/80. HEENT: Exam within normal limits. Neck: Supple. Chest: Clear. Heart: Sounds are regular. Abdomen: Belly is soft, nontender. Neurologic: No obvious neurological deficits. INVESTIGATIONS: None reported. ASSESSMENT AND PLAN: 1. Escherichia coli sepsis currently on intravenous ceftriaxone. Repeat urine cultures and blood cultures. 2. Coronary artery disease status post bypass, normal echocardiogram. Continue on aspirin, Plavix, metoprolol. The patient has been cleared for right femoropopliteal bypass surgery. 3. Peripheral vascular disease on Pletal, waiting for right femoropopliteal bypass surgery by Dr. Adler. 4. Hyperlipidemia on Pravachol. 5. Continue present treatment. Patient will be on nothing by mouth after Saturday night for femoral-popliteal bypass surgery by Dr. Adler. LEVEL OF DOCUMENTATION: 25 minutes. cc: Gurwinder Wallace MD
[2018-11-22] MEDS: PRAVACHOL PO SCH (20:38)
[2018-11-23] MEDS: LOVENOX SUBQ SCH (01:18)
[2018-11-23] MEDS: PROTONIX IV SCH (01:18)
[2018-11-23] MEDS: ROCEPHIN 1 GM in NS 50 ML IV SCH (01:18)
[2018-11-23] MEDS: HUMALOG SUBQ SCH ×4 (06:09→21:41)
[2018-11-23] MEDS: SYNTHROID PO SCH (06:25)
[2018-11-23] MEDS: TOPROL XL PO SCH ×2 (10:05→21:41)
[2018-11-23] MEDS: PLAVIX PO SCH (10:05)
[2018-11-23] MEDS: PLETAL PO SCH (10:05)
[2018-11-23] MEDS: ASPIRIN PO SCH (10:05)
--- NOTE | 2018-11-23 12:47 | PROGRESS NOTE ---
DATE: 11/23/2018 OBJECTIVE: Vital signs: Stable with temperature 98 degrees, heart rate 58, respirations 18, blood pressure 185/86, O2 saturation on room air 98%. General: The patient is a 67-year-old black man with E. coli urinary tract infection and early sepsis who has been treated with intravenous Rocephin. He is alert and oriented. Lungs: Chest is clear. Abdomen: Soft. Extremities: He complains with stiffness in his right leg. ASSESSMENT AND PLAN: He has been having leg symptoms for about a year. He was evaluated by Dr. Adler and found to have peripheral vascular disease. Plans are for a femoral-popliteal bypass tomorrow. On 11/21, basic metabolic profile was normal with BUN 16, and creatinine 0.9. Urine culture revealed E. coli and blood culture also revealed E. coli, sensitive to cefazolin and most antibiotics. cc: MD Gurwinder Tran MD
[2018-11-23] MEDS: PRAVACHOL PO SCH (21:40)
[2018-11-24] MEDS: LOVENOX SUBQ SCH (00:31)
[2018-11-24] MEDS: ROCEPHIN 1 GM in NS 50 ML IV SCH ×2 (00:58→22:39)
[2018-11-24] MEDS: PROTONIX IV SCH (00:58)
[2018-11-24] MEDS: SYNTHROID PO SCH (06:02)
[2018-11-24] MEDS: HUMALOG SUBQ SCH ×4 (06:02→22:40)
[2018-11-24] MEDS ORDERED: NEO-SYNEPHRINE ONE (07:14)
[2018-11-24] MEDS ORDERED: DIPRIVAN 1% ONE (07:14)
[2018-11-24] MEDS ORDERED: SODIUM CHLORIDE 0.9% 10 ML ONE (07:14)
[2018-11-24] MEDS ORDERED: NORCURON ONE ×2 (07:14→10:59)
[2018-11-24] MEDS ORDERED: XYLOCAINE-MPF 2% ONE (07:14)
[2018-11-24] MEDS ORDERED: QUELICIN (DOSE) ONE (07:14)
[2018-11-24] MEDS ORDERED: THROMBIN-JMI ONE (07:45)
[2018-11-24] MEDS ORDERED: PAPAVERINE ONE ×2 (07:45→13:26)
[2018-11-24] MEDS ORDERED: KEFZOL ONE (07:45)
[2018-11-24] MEDS ORDERED: HEPARIN ONE ×2 (07:45→09:14)
[2018-11-24] MEDS ORDERED: NS 1,000 ML ONE ×3 (07:46→12:34)
[2018-11-24] MEDS ORDERED: ROBINUL ONE ×2 (08:37→11:25)
[2018-11-24] MEDS ORDERED: EPHEDRINE ONE (08:39)
[2018-11-24 08:49] LABS: URINE SOURCE CATH
[2018-11-24] MEDS: NS 1,000 ML IV SCH ×2 (08:56→14:17)
[2018-11-24] MEDS: ASPIRIN PO SCH (08:56)
[2018-11-24] MEDS: TOPROL XL PO SCH ×3 (08:57→22:41)
[2018-11-24] MEDS: PLAVIX PO SCH (08:57)
[2018-11-24] MEDS: PLETAL PO SCH (08:57)
[2018-11-24 09:02] LABS: BILIRUBIN URINE NEGATIVE (NEGATIVE); BLOOD URINE NEGATIVE (NEGATIVE); COLOR YELLOW; GLUCOSE URINE NEGATIVE (NEGATIVE); KETONE URINE NEGATIVE (NEGATIVE); LEUKOCYTES URINE NEGATIVE (NEGATIVE); NITRITE URINE NEGATIVE (NEGATIVE); PROTEIN URINE NEGATIVE (NEGATIVE); SP GRAVITY URINE 1.005; TURBIDITY URINE CLEAR (CLEAR); UR EPITHELIAL CELLS <10 /HPF (<10); URINE BACTERIA NEGATIVE /HPF; URINE RBC <10 /HPF (<10); URINE WBC <10 /HPF (<10); UROBILINOGEN URINE NORMAL (NORMAL)
[2018-11-24] MEDS ORDERED: SENSORCAINE-MPF 0.5%/EPI 1:200,000 ONE (09:14)
[2018-11-24] MEDS ORDERED: HEPARIN (DOSE) ONE (09:43)
[2018-11-24] MEDS ORDERED: ZOFRAN ONE (09:53)
[2018-11-24] MEDS ORDERED: FENTANYL ONE (09:53)
[2018-11-24] MEDS ORDERED: DILAUDID ONE (09:57)
[2018-11-24] MEDS ORDERED: STERILE WATER INJ. ONE (10:59)
[2018-11-24] MEDS ORDERED: NEOSTIGMINE ONE (11:27)
--- NOTE | 2018-11-24 12:13 | OPERATIVE NOTE ---
PROCEDURE DATE: 11/24/2018 PROCEDURE PERFORMED: Right [id number] tibial in situ vein bypass. SURGEON: Wicho Adler MD CARD GRADER: Ang Lackey RN PREOPERATIVE DIAGNOSIS: Right popliteal artery occlusion with severe claudication. POSTOPERATIVE DIAGNOSIS: Right popliteal artery occlusion with severe claudication. INDICATIONS: A 67-year-old who desires improvement in his walking. He failed endovascular attempt to cross the popliteal artery occlusion. He has 2- vessel runoff, the posterior tibial and the peroneal arteries. The tibioperoneal trunk, though, is occluded. DESCRIPTION OF PROCEDURE: Satisfactory general endotracheal anesthesia achieved. The right leg was prepped and draped in a sterile fashion. The foot was excluded. The vein had been mapped and was quite small below the knee, and had deteriorated to less than 2 mm in size, probably from dehydration during his hospitalization. It had previously been marginal below the knee, but we decided to proceed. We made a curvilinear incision in the right groin and dissected down to the common femoral artery, and surrounded it with umbilical tape. We identified the greater saphenous vein and it had a branch going off the artery, which we clipped and divided. We then identified the superficial femoral and surrounded it with a vessel loop. We did not have to surround the profunda because it appeared that we could tie into the superficial femoral below the profunda takeoff. We marked the vein on its anterior aspect after ligating its branches. We then turned our attention to the calf on the proximal medial side. We made a longitudinal incision anterior to the teena where the vein was and entered the popliteal space. We did divide the distal popliteal, the takeoff of the anterior tibial, and the tibioperoneal trunk. We then saved the vein as it crossed over the artery, but divided some of the branches so that we could expose the posterior tibial artery at its take-off. We surrounded it with vessel loops. We then gave the patient 8000 units of heparin systemically. We then went back to the proximal wound and after the heparin had circulated satisfactorily, we used a Satinsky clamp at the takeoff of the greater saphenous, amputated it there, and oversewed the stump with a 5-0 Prolene stitch. We inspected the orifice of the vein under 2.5 loupe magnification and did not see any valves. We then swung it over to the artery. We then clamped off the artery, incised the artery, used a 4 mm punch, and then did the [id number] anastomosis using a 5-0 Prolene stitch. We then allowed flow into the proximal vein. We turned our attention distally. We identified the vein actually distal to the incision into the popliteal space. We exposed it, found a branch, and under 2.5 loupe magnification we made a small venotomy in the branch of the greater saphenous vein and passed the Glidewire up the vein through the proximal anastomosis. We then followed this with the 1.5 mm expandable valvulotome. The vein was rather small and the valvulotome went with only slight difficulty as the vein was small, but we were able to progress cautiously up the vein through the proximal anastomosis. We then opened the valvulotome and engaged the valves as we came distally. We did that 2 additional times and only very meager pulsatile flow was present, so we then removed the valvulotome, removed the guidewire, and injected papaverine into the distal vein. We used 120 mg of papaverine diluted to 10 mL. We then clamped off the vein distally. The vein actually did develop a pulse. We then marked the vein and mobilized it up to the proximal end of the calf incision, and we reflected about whether to mobilize it more fully and tunnel it through the popliteal space, but we decided that we would have enough laxity and that the angle would not be a significant problem going down to the posterior tibial artery, so we chose not to tunnel it from the proximal end of the proximal popliteal space. After mobilizing the vein, it continued to be pulsatile. We identified the artery and under 2.5 loupe magnification, we then incised the artery for 2 cm. We passed a 1.5, 2, and 2.5 probe in the artery. We did have backbleeding. We then placed the vein alongside the artery with no tension on the vein, and laxity. We then clamped off the vein with the bulldog clamp at the proximal end of the incision and then cut the vein the appropriate length, and then incised the vein to match the arteriotomy, which was about 2 cm. Under 2.5 loupe magnification and using a 6-0 Prolene stitch, we constructed the anastomosis beginning at the heel and going around the toe. At the completion and before we tied it, we were able to pass a 2 probe back into the vein graft and we also passed it distally into the artery. We then finished the anastomosis and flow was established. Two additional stitches were required for hemostasis along the sidewall of the anastomosis. Again, a pulse was noted within the vein graft as well as in the artery at the anastomosis. We then proceeded to close the subcutaneous tissue with 3-0 Polysorb pops. We closed the subcutaneous tissue over the vein graft proximally. I failed to mention that we did extend our incision proximally down to clip off the 2 major branches. We then closed the subcutaneous tissue with 3-0 Polysorb. We irrigated out both wounds with Kefzol-impregnated saline and then closed the proximal groin wound in 2 layers, the first layer of 2-0 Polysorb running and the final layer of 3-0 Polysorb pops. The subcutaneous tissue at the distal incision was closed with 3-0 Polysorb pop sutures as well. The skin was then closed with ev. He tolerated the procedure satisfactorily with 750 mL of blood loss. He was sent to the recovery room in stable condition. cc: MD Gurwinder Hooper MD
[2018-11-24] MEDS ORDERED: DILAUDID IV PRN (13:16)
[2018-11-24] MEDS: NORCO-10 PO PRN ×3 (14:20→22:40)
--- NOTE | 2018-11-24 18:33 | GENERAL SURGERY PROGRESS NOTE ---
DATE: 11/24/2018 DATE AND TIME: 11/24/2018, 5:36 p.m. OBJECTIVE: Vital Signs: Mr. Maurer is afebrile. Blood pressure is 122/71. Exam: He has a palpable graft pulse. His foot is still cool. He has some bloody drainage from his bandages, but nothing that is ongoing. We will check his labs in the morning. cc: MD Gurwinder Hooper MD
[2018-11-24] MEDS: PRAVACHOL PO SCH (22:40)
[2018-11-25] MEDS: NS 1,000 ML IV SCH ×3 (00:14→12:33)
--- NOTE | 2018-11-25 00:29 | PROGRESS NOTE ---
DATE: 11/24/2018 SUBJECT: Patient was not in the room this morning. Went to surgery. Patient was seen in the evening. Patient has a right femoral posterior tibial in situ vein bypass graft. There was a lot of bleeding at the incisional site. I discussed with the nurses. They want to notify Dr. Adler. Johnston was placed. Repeat blood cultures were negative for UTI. EXAM: Temperature is 98 degrees, pulse is 85, blood pressure 99/ 56.HEENT: Within normal limits. Neck: Supple. Chest: Clear. Heart: Sounds are regular. Right leg lot of oozing at the incisional site. ASSESSMENT AND PLAN: 1. Urosepsis due to Escherichia coli better and continue on IV ceftriaxone. 2. Peripheral arterial disease status post femoral posterior tibial in vein situ for popliteal occlusion. Continue IV fluids. Hydromorphone for pain, aspirin, Plavix and hydrocodone. 3. Hypothyroidism on Synthroid. Dr. Adler did a blood test in the morning. 4. Will closely monitor. Postop management . LEVEL OF DOCUMENTATION: 25 minutes. cc: Gurwinder Wallace MD
[2018-11-25] MEDS: LOVENOX SUBQ SCH ×2 (01:19→22:33)
[2018-11-25] MEDS: ROCEPHIN 1 GM in NS 50 ML IV SCH ×2 (01:20→22:33)
[2018-11-25] MEDS: PROTONIX IV SCH ×2 (01:20→22:33)
[2018-11-25] MEDS: NORCO-10 PO PRN ×4 (03:56→20:43)
[2018-11-25] MEDS: HUMALOG SUBQ SCH ×4 (06:53→22:30)
[2018-11-25] MEDS: SYNTHROID PO SCH (06:53)
[2018-11-25 07:41] LABS: BASO# 0.01 X1000 (0.0-0.2); BASO% 0.1 % (0.0-0.8); EOS# 0.08 X1000 (0.0-0.7); EOS% 0.9 % (0.0-10.0); HEMOGLOBIN 9.1 g/dL (14.0-18.0); IMM GRAN# 0.06 X1000 (0.0-0.04); IMM GRAN% 0.6 % (0.0-0.5); LYMPH# 1.58 X1000 (1.2-3.4); LYMPH% 16.9 % (20.5-51.1); MCHC 33.7 g/dL (33-37); MCV 97.8 FL (81-99); MONO# 1.03 X1000 (0.11-0.59); MPV 9.6 FL (7.4-10.4); NEUT% 70.5 % (42.2-75.2); PLT 324 X1000 (130-400); RBC 2.76 XMIL (4.7-6.1); RDW 11.7 % (11.5-14.5); WBC 9.36 X1000 (4.8-10.8)
[2018-11-25 08:29] LABS: POTASSIUM 4.2 mmol/L (3.5-5.1)
[2018-11-25 08:31] LABS: AGAP 9; BUN 16 mg/dL (8-22); CALCIUM 7.7 mg/dL (8.8-10.2); CHLORIDE 104 mmol/L (98-107); COSMO 278; CREATININE 1.2 mg/dL (0.7-1.2); ESTIMATED GFR > 60; GLUCOSE 112 mg/dL (70-104); SODIUM 138 mmol/L (136-145); TCO2 25 mmol/L (25-35)
[2018-11-25] MEDS: TOPROL XL PO SCH ×2 (08:45→22:33)
[2018-11-25] MEDS: PLAVIX PO SCH (08:45)
[2018-11-25] MEDS: PLETAL PO SCH (08:45)
[2018-11-25] MEDS: ASPIRIN PO SCH (08:45)
--- NOTE | 2018-11-25 15:56 | GENERAL SURGERY PROGRESS NOTE ---
DATE: 11/25/2018 SUBJECTIVE: He is postop day 1 after right femoral to posterior tibial in situ vein bypass. Today, he is generally well. OBJECTIVE: He is afebrile. Heart rate 60. Blood pressure is 117/57. His foot is warmer today than yesterday. He has excellent triphasic pulsatile flow with the posterior tibial position, also at the peroneal position. His graft is palpable. His wound is fine. It was cleaned with saline and Betadine and redressed. The plan is to remove his Johnston today. If he can stand up to void, we will start ambulating him tomorrow with PT assistance if needed. cc: MD Gurwinder Hooper MD
--- NOTE | 2018-11-25 21:06 | PROGRESS NOTE ---
DATE: 11/25/2018 SUBJECTIVE: Patient is doing better and postop day 1 right femoral to posterior tibial vein in situ bypass. No complaints. No excessive bleeding noted. EXAM: Low-grade fever. Temperature is 99 degrees, pulse is 87, blood pressure is 167/67.HEENT: Within normal limits. Neck: Supple. No lymphadenopathy. Chest: Clear to auscultation. Heart: Sounds are regular. Belly: Is soft, nontender. Good bowel sounds and right leg, no active bleeding noted. INVESTIGATIONS: CBC. White cell count 9.3, hematocrit 27, platelets 324,000. SMA 7 was normal. Urinalysis is clear. Repeat urine cultures, blood cultures were negative. ASSESSMENT AND PLAN: 1. Postoperative day 1 doing well. Check the CBC in the morning. Decrease IV fluids. 2. Escherichia coli and sepsis stable on ceftriaxone. 3. Continue DVT prophylaxis and will follow up. LEVEL OF DOCUMENTATION: 15 minutes. cc: Gurwinder Wallace MD
[2018-11-25] MEDS: PRAVACHOL PO SCH (22:33)
[2018-11-25] MEDS: SODIUM CHLORIDE 0.9% INJ SCH (22:33)
[2018-11-26] MEDS: NORCO-10 PO PRN ×2 (02:08→11:01)
[2018-11-26] MEDS: PROTONIX IV SCH (02:30)
[2018-11-26] MEDS: ROCEPHIN 1 GM in NS 50 ML IV SCH (02:30)
[2018-11-26] MEDS: LOVENOX SUBQ SCH (02:30)
[2018-11-26] MEDS: SYNTHROID PO SCH (06:27)
[2018-11-26] MEDS: HUMALOG SUBQ SCH ×4 (06:28→22:00)
[2018-11-26 07:50] LABS: BASO# 0.01 X1000 (0.0-0.2); BASO% 0.1 % (0.0-0.8); EOS# 0.22 X1000 (0.0-0.7); EOS% 2.2 % (0.0-10.0); HEMOGLOBIN 8.7 g/dL (14.0-18.0); IMM GRAN# 0.05 X1000 (0.0-0.04); IMM GRAN% 0.5 % (0.0-0.5); LYMPH# 1.82 X1000 (1.2-3.4); LYMPH% 18.6 % (20.5-51.1); MCH 32.7 PG (27-31); MCHC 33.5 g/dL (33-37); MCV 97.7 FL (81-99); MONO# 1.05 X1000 (0.11-0.59); MONO% 10.7 % (1.7-9.3); MPV 9.7 FL (7.4-10.4); NEUT# 6.66 X1000 (1.4-6.5); NEUT% 67.9 % (42.2-75.2); PLT 333 X1000 (130-400); RBC 2.66 XMIL (4.7-6.1); RDW 11.8 % (11.5-14.5); WBC 9.81 X1000 (4.8-10.8)
[2018-11-26] MEDS: ASPIRIN PO SCH (09:24)
[2018-11-26] MEDS: TOPROL XL PO SCH ×2 (09:24→22:03)
[2018-11-26] MEDS: NS 1,000 ML IV SCH (09:24)
[2018-11-26] MEDS: PLAVIX PO SCH (09:24)
--- NOTE | 2018-11-26 12:40 | GENERAL SURGERY PROGRESS NOTE ---
DATE: 11/26/2018 SUBJECTIVE: He is 2 days after right femoral popliteal in situ vein bypass. He has a graft pulse. His wounds look fine. His foot is warm. He did try to get it up today, but it was hard for him to bear weight on it and he is afebrile, heart rate 78, blood pressure 201/81. Plan is to encourage mobility. Physical therapy is assisting. We hope to get him out of the hospital in the next 48 hours. He will probably need home health PT. cc: MD Gurwinder Hooper MD
[2018-11-26] MEDS: PRAVACHOL PO SCH (22:02)
--- NOTE | 2018-11-27 00:01 | PROGRESS NOTE ---
DATE: 11/26/2018 SUBJECTIVE: Postop day 2 for a posterior tibial in situ vein graft bypass surgery. Patient is doing very well. Johnston was discontinued. There is some excessive oozing from the groin site noted. REVIEW OF SYSTEMS: No complaints. EXAMINATION: Vital Signs: Temperature is low grade fever 99.2, pulse is 78, blood pressure 160/63. HEENT: Within normal limits. Neck: Supple. Chest: Clear. Heart: Sounds are regular. Abdomen: Belly is soft, nontender. Extremities: No signs of gangrene noted. INVESTIGATIONS: CBC: White cell count 9.8, hematocrit 26, platelets 333,000. Blood sugars are normal. ASSESSMENT AND PLAN: 1. Postoperative day 2. Excessive oozing. Decreased IV fluids to 50 mL/hour. 2. Urinary tract infection, with Escherichia coli, on ceftriaxone. Johnston was discontinued. Repeat the CBC in the morning, as well as BMP. 3. Hypothyroidism. On Synthroid. 4. Deep venous thrombosis prophylaxis with Lovenox. 5. Coronary artery disease. Stable. Continue present treatment. LEVEL OF DOCUMENTATION: 25 minutes. cc: Gurwinder Wallace MD
[2018-11-27] MEDS: ROCEPHIN 1 GM in NS 50 ML IV SCH (00:43)
[2018-11-27] MEDS: NORCO-10 PO PRN ×2 (00:43→08:39)
[2018-11-27] MEDS: PROTONIX IV SCH (00:43)
[2018-11-27] MEDS: SODIUM CHLORIDE 0.9% INJ SCH (00:43)
[2018-11-27] MEDS: LOVENOX SUBQ SCH (00:43)
[2018-11-27] MEDS: SYNTHROID PO SCH (06:15)
[2018-11-27] MEDS: NS 1,000 ML IV SCH (06:15)
[2018-11-27] MEDS: HUMALOG SUBQ SCH ×4 (06:15→22:16)
[2018-11-27 07:40] LABS: BASO# 0.01 X1000 (0.0-0.2); BASO% 0.1 % (0.0-0.8); EOS# 0.23 X1000 (0.0-0.7); EOS% 2.2 % (0.0-10.0); HEMATOCRIT 26.8 % (42.0-52.0); HEMOGLOBIN 8.8 g/dL (14.0-18.0); IMM GRAN# 0.04 X1000 (0.0-0.04); IMM GRAN% 0.4 % (0.0-0.5); LYMPH% 13.2 % (20.5-51.1); MCH 32.2 PG (27-31); MCHC 32.8 g/dL (33-37); MCV 98.2 FL (81-99); MONO# 0.72 X1000 (0.11-0.59); MONO% 6.8 % (1.7-9.3); MPV 9.2 FL (7.4-10.4); NEUT# 8.18 X1000 (1.4-6.5); NEUT% 77.3 % (42.2-75.2); PLT 377 X1000 (130-400); RBC 2.73 XMIL (4.7-6.1); RDW 12.1 % (11.5-14.5); WBC 10.58 X1000 (4.8-10.8)
[2018-11-27 07:59] LABS: AGAP 9; BUN 13 mg/dL (8-22); CALCIUM 8.7 mg/dL (8.8-10.2); CHLORIDE 107 mmol/L (98-107); COSMO 278; CREATININE 1.1 mg/dL (0.7-1.2); ESTIMATED GFR > 60; GLUCOSE 109 mg/dL (70-104); POTASSIUM 4.1 mmol/L (3.5-5.1); SODIUM 139 mmol/L (136-145); TCO2 23 mmol/L (25-35)
[2018-11-27] MEDS: ASPIRIN PO SCH (08:38)
[2018-11-27] MEDS: PLAVIX PO SCH (08:38)
[2018-11-27] MEDS: TOPROL XL PO SCH ×2 (08:42→21:21)
[2018-11-27] MEDS ORDERED: IMODIUM PO PRN (09:37)
--- NOTE | 2018-11-27 15:47 | GENERAL SURGERY PROGRESS NOTE ---
DATE: 11/27/2018 SUBJECTIVE: Mr. Maurer has a palpable graft pulse. He has good Doppler flow at the posterior tibial position. He is afebrile, heart rate 81, blood pressure 178/71, hemoglobin 8.8, hematocrit 26.8. BUN 13, creatinine 1.1. His wound was fine. Mr. Maurer can be discharged from my perspective whenever the medical doctors are ready. At home, he will stay on aspirin and Plavix. He will return to see me in the office in a week. We will get him a walker to use at home. cc: MD Gurwinder Hooper MD
[2018-11-27] MEDS: PRAVACHOL PO SCH (21:21)
--- NOTE | 2018-11-27 21:44 | VASCULAR LAB ---
DATE: 11/24/2018 OYSTER FLOATER: [place]. REQUESTING PHYSICIAN: Dr. Wicho Adler. INDICATION: Evaluate for bypass. FINDINGS: The greater saphenous vein starting at zone 1 is 2.5 mm, zone 2, 2.2 mm, zone 3, 1.8, zone 4, 1.8, zone 5, 1.5, zone 6, 1.5, zone 7, 1.8, zone 8, 2.3. IMPRESSION: Very small venous conduit noted. It does appear compressible with no evidence of superficial venous thrombosis, but very small caliber. cc: MD Wicho Kiran MD Jagan Reddy, MD
[2018-11-28] MEDS: ROCEPHIN 1 GM in NS 50 ML IV SCH (01:11)
--- NOTE | 2018-11-28 03:52 | PROGRESS NOTE ---
DATE: 11/27/2018 SUBJECTIVE: The patient complains of abdominal cramps and loose stools. REVIEW OF SYSTEMS: As above. OBJECTIVE: Vital Signs: Temperature is 98 degrees, pulse is 77, blood pressure 115/70. HEENT: Within normal limits. Neck: Supple. Chest: Clear to auscultation. Heart: Sounds are regular. Abdomen: Belly is soft, distended. INVESTIGATIONS: CBC: White cell count 10.5, hematocrit 26.8, platelet count 377,000. SMA-7: Sodium 139, potassium 4.1, chloride 107, BUN 13, creatinine 1.1, glucose 109. C. difficile cultures were negative. ASSESSMENT AND PLAN: 1. Postoperative day 3 slightly anemic, we will continue to follow up on complete blood count. 2. Escherichia coli sepsis. Recent instrumentation and continue on intravenous ceftriaxone. 3. Bladder scan revealed 1100 ml straight catheterization in and out. Follow up on bladder scans and discontinue intravenous fluids. 4. Status post vein graft femoral posterior tibial artery. We will follow up on pulses on the Doppler and continue present treatment. Recheck the complete blood count in the morning. LEVEL OF DOCUMENTATION: 25 minutes. cc: Gurwinder Wallace MD MTDD
[2018-11-28] MEDS: LOVENOX SUBQ SCH ×2 (05:54→06:21)
[2018-11-28] MEDS: SODIUM CHLORIDE 0.9% INJ SCH (05:54)
[2018-11-28] MEDS: PROTONIX IV SCH ×2 (05:54→06:21)
[2018-11-28] MEDS: SYNTHROID PO SCH ×2 (05:54→06:21)
[2018-11-28] MEDS: HUMALOG SUBQ SCH ×4 (06:20→22:59)
[2018-11-28 07:53] LABS: BASO# 0.02 X1000 (0.0-0.2); BASO% 0.2 % (0.0-0.8); EOS# 0.24 X1000 (0.0-0.7); EOS% 2.8 % (0.0-10.0); HEMATOCRIT 26.1 % (42.0-52.0); HEMOGLOBIN 8.5 g/dL (14.0-18.0); IMM GRAN# 0.02 X1000 (0.0-0.04); IMM GRAN% 0.2 % (0.0-0.5); LYMPH# 1.42 X1000 (1.2-3.4); LYMPH% 16.4 % (20.5-51.1); MCHC 32.6 g/dL (33-37); MCV 98.1 FL (81-99); MONO# 0.53 X1000 (0.11-0.59); MONO% 6.1 % (1.7-9.3); MPV 9.3 FL (7.4-10.4); NEUT# 6.41 X1000 (1.4-6.5); NEUT% 74.3 % (42.2-75.2); PLT 412 X1000 (130-400); RBC 2.66 XMIL (4.7-6.1); RDW 12.2 % (11.5-14.5); WBC 8.64 X1000 (4.8-10.8)
[2018-11-28] MEDS: TOPROL XL PO SCH ×2 (09:02→22:58)
[2018-11-28] MEDS: ASPIRIN PO SCH (09:02)
[2018-11-28] MEDS: PLAVIX PO SCH (09:02)
[2018-11-28] MEDS ORDERED: XYLOCAINE 2% JELLY UROJECT TOP ONE (15:49)
--- NOTE | 2018-11-28 19:06 | CONSULTATION ---
DATE OF CONSULTATION: 11/28/2018 ATTENDING AND REFERRING PHYSICIAN: Dr. Wallace. HISTORY OF PRESENT ILLNESS: This 67-year-old male was admitted with a febrile urinary tract infection and peripheral vascular disease. His urine culture grew E. coli. He states he had a Johnston catheter placed the week before admission and he feels he got the infection at that time. He had right leg surgery (right femoral to posterior tibial in situ vein bypass) . He states he has not been able to void normally since that time. He states that after the catheter comes out he voids a little bit and then he cannot go at all. He states currently he has to keep a urinal beneath his penis because the water just dribbles out periodically. He states this has never occurred before. He was not taking any medication for his prostate at home. He denies any previous urologic surgery. There is no history of urinary infections, hematuria or stones. The patient states he has been catheterized intermittently and it seems to cause severe pain. PAST MEDICAL HISTORY: Significant peripheral vascular disease, abdominal aortic aneurysm, coronary artery disease, hypertension, hypothyroidism, elevated cholesterol, status post CVA last year without deficits. CURRENT MEDICATIONS: Documented on the chart. PAST SURGICAL HISTORY: C-spine surgery, lower back surgery, right foot surgery , cardiac stent placement, foot surgery (wart excision), coronary artery bypass grafting in 2013. SOCIAL HISTORY: No tobacco use in 5 years. ETOH use negative. He is and lives with his . REVIEW OF SYSTEMS. He is allergic to Septra DS. He denies any recent problems with chest pain. He states he has asthma and does use an inhaler for that. He has had no chest pains or recent bowel problems. PHYSICAL EXAMINATION: General: A normally developed, well-nourished, age apparent, black male, oriented in all ways and cooperative. HEENT: Normal for age. Lungs: With some wheezing otherwise clear. Cardiovascular: Regular rate and rhythm. Abdomen: Protuberant, soft. No hepatosplenomegaly or masses. Normal bowel sounds. There is a bulge in the suprapubic area consistent with urine retention. Postvoid residual over 700 mL. : Uncircumcised male. Foreskin retracts. Glans penis is normal. Both testes down. Small bilateral hydrocele. Palpably normal scrotum. Rectal: Deferred. Extremities: No clubbing, cyanosis, or edema. Neuro: No focal deficits. LABORATORY EVALUATION: He has a white count of 8.64, hemoglobin 8.5, hematocrit 26, platelet count is 412,000. Serum electrolytes on the were normal, BUN 13, creatinine 1.1. IMPRESSION: 1. Postoperative urinary retention currently with overflow incontinence. 2. Enlarged prostate with obstructive voiding. 3. Peripheral vascular disease. 4. History of urinary tract infection. PLAN: 1. The patient was prepped and draped sterilely for placing of a Johnston catheter. 20 mL of 2% viscous lidocaine was placed in the patient's urethra and held for 5 minutes. A 16-[place] coude Johnston catheter was then sterilely placed through the patient's urethra , and after some manipulation, through the prostate and into the bladder. There was immediate return of clear urine. 10 mL of sterile water were placed in the Johnston's balloon. Several minutes after the catheter was placed over 500 mL drained into the collection bag and was still draining. A sample will be taken for urinalysis. 2. Start Flomax 0.4 mg at bedtime. A prescription was written for him to take home. 3. Recommend keeping the Johnston catheter for 5 days. He can be seen in the [facility]rology [facility] for a voiding trial if he goes home prior to then. Thank you for this consultation. cc: MD Gurwinder Henriquez MD MTDTg
[2018-11-28 20:04] LABS: URINE SOURCE CATH
[2018-11-28 20:07] LABS: BILIRUBIN URINE NEGATIVE (NEGATIVE); BLOOD URINE TRACE (NEGATIVE); COLOR YELLOW; GLUCOSE URINE NEGATIVE (NEGATIVE); KETONE URINE NEGATIVE (NEGATIVE); LEUKOCYTES URINE NEGATIVE (NEGATIVE); NITRITE URINE NEGATIVE (NEGATIVE); PH URINE 6.5; PROTEIN URINE TRACE mg/dL (NEGATIVE); SP GRAVITY URINE 1.016; TURBIDITY URINE CLEAR (CLEAR); UR EPITHELIAL CELLS <10 /HPF (<10); URINE BACTERIA NEGATIVE /HPF; URINE RBC <10 /HPF (<10); URINE WBC <10 /HPF (<10); UROBILINOGEN URINE NORMAL (NORMAL)
--- NOTE | 2018-11-28 20:27 | PROGRESS NOTE ---
DATE: 11/28/2018 SUBJECTIVE: The patient has abdominal distention. Bladder scan is 750 mL. Nurse was unable to pass the Johnston catheter. Dr. Siddiqui was consulted. Right foot had good pulses noted. The rest of the review of systems are normal. EXAMINATION: Vital Signs: Temperature is 97 degrees, pulse is 70. Vitals are stable. HEENT: Within normal limits. Neck: Supple. Chest: Clear. Heart: Sounds are regular. Abdomen: Belly is soft, distant. Extremities: Right foot and pulses are palpable on the Doppler, posterior tibial and dorsalis pedis. INVESTIGATIONS: CBC: White cell count 8.6, hematocrit 26, platelets 412,000. ASSESSMENT AND PLAN: 1. Diarrhea, better. 2. Bladder retention and enlarged prostate with urinary tract infection. Consulted Dr. Siddiqui. 3. Anemia postop, stable. 4. Discontinue IV fluids. 5. Continue on ceftriaxone. Will swap it to oral antibiotics, based of the culture and sensitivity. It is sensitive to Levaquin. Discussed with Dr. Adler this afternoon. Dr. Siddiqui has been consulted. Based on that, the disposition will be decided. LEVEL OF DOCUMENTATION: 35 minutes. cc: Gurwinder Wallace MD
[2018-11-28] MEDS ORDERED: FLOMAX PO SCH (21:00)
[2018-11-28] MEDS: PRAVACHOL PO SCH (22:58)
[2018-11-28] MEDS: NORCO-10 PO PRN (23:02)
[2018-11-29] MEDS: ROCEPHIN 1 GM in NS 50 ML IV SCH (02:07)
[2018-11-29] MEDS: HUMALOG SUBQ SCH ×3 (06:11→17:00)
[2018-11-29] MEDS: LOVENOX SUBQ SCH (06:11)
[2018-11-29] MEDS: SODIUM CHLORIDE 0.9% INJ SCH (06:12)
[2018-11-29] MEDS: PROTONIX IV SCH (06:12)
[2018-11-29] MEDS: SYNTHROID PO SCH (06:12)
[2018-11-29 09:58] VITALS: BP 153/76
[2018-11-29] MEDS: NORCO-10 PO PRN (11:50)
[2018-11-29] MEDS: PLAVIX PO SCH (11:51)
[2018-11-29] MEDS: ASPIRIN PO SCH (11:51)
[2018-11-29] MEDS: TOPROL XL PO SCH (11:51)
--- NOTE | 2018-11-29 15:58 | GENERAL SURGERY PROGRESS NOTE ---
DATE: 11/29/2018 Mr. Maurer is going to get to go home today. His wound continues look good. He has a palpable graft pulse. He is to stay on aspirin and Plavix. He will return to the office next week for staple removal. cc: MD Gurwinder Hooper MD
--- NOTE | 2018-11-30 12:09 | DISCHARGE SUMMARY ---
ADMISSION DATE: 11/18/2018 DISCHARGE DATE: 11/29/2018 DISCHARGING DIAGNOSIS: Escherichia coli sepsis due to underlying benign prostatic hypertrophy. SECONDARY DIAGNOSES: 1. Right carotid stenosis 60%. 2. Aneurysm of abdominal aorta, 3 cm. 3. Coronary artery disease, status post bypass surgery. 4. Hypertension. 5. Hypothyroidism. 6. Benign prostatic hypertrophy. 7. Nicotine abuse. 8. Hyperlipidemia. 9. Peripheral vascular disease with symptoms on the right leg, sign status post right femoral posterior tibial artery in situ vein graft. 10. Right lacunar stroke in 2018. CONSULTS: 1. Dr. Quinton Solis. 2. Dr. Siddiqui for benign prostatic hypertrophy. 3. Dr. Adler for bypass surgery on the right leg. BRIEF HISTORY: Please see the H and P that was done on 11/18/2018. In brief, he is a 66-year-old male brought to the emergency room with a temperature of 102 degrees, near syncope, dizziness, profuse sweating, hypertension, acute kidney injury, elevated white cell count. Initial workup showed urinary tract infection. He was seen by Dr. Adler a few days before this trying to do atherectomy on the right leg for peripheral vascular disease. Apparently it did not work and scheduled for bypass surgery. He has some instrumentation of the bladder done by Johnston. HOSPITAL COURSE: 1. Blood cultures and urine cultures grew E. coli which is ESBL negative. He was started on IV cephalosporins. Follow up IV antibiotics. His sepsis syndrome was much improved. Johnston was discontinued. Follow up urine cultures and blood cultures were negative. 2. Since patient has atherosclerotic cardiovascular disease, status post bypass surgery Dr. Padron was consulted for preop clearance for bypass surgery on the right leg. Echocardiography showed normal LV systolic function. He is asymptomatic. 3. Dr. Adler was consulted for bypass surgery while he was in the hospital. Postoperative course was complicated by bladder retention, slight anemia. He has postvoid residual urine around [address] Siddiqui was consulted. He was placed on Johnston catheter, started on Flomax, and follow up as an outpatient. He still has the ev in the right groin and the right leg. He has good pulses in the feet and the graft was working. Dr. Adler wants to discontinue Pletal. LABS: CBC: White cell count 8.6, hematocrit 26, platelets 412,000. Sodium 139, potassium 4.1, chloride 107, BUN 31, creatinine 1.1, glucose 109. C. difficile toxin was negative. RADIOLOGY PROCEDURE DURING THIS ADMISSION: 1. Echocardiography 11/29/2018: Normal LV function. No significant valvular heart disease seen. 2. Chest x-ray: No acute disease. Status post bypass changes. DISCHARGE MEDICATIONS: Aspirin 325 daily, Mobic as needed for pain for right knee, metoprolol 50 p.o. b.i.d., hydralazine 50 t.i.d., Synthroid 50 mcg daily, pravastatin 80 daily, Hyzaar 50/12.5 daily, Plavix 75 daily, [place] as needed for pain. Discontinue Pletal. Flomax 0.4 daily, Icar C Plus 1 tablet daily, Levaquin 500 daily for 10 days. DISCHARGE INSTRUCTIONS: Follow up with Dr. Adler, Dr. Siddiqui, as well as my office. cc: MD Quinton Oliveira MD Dr. Walker Dr. Hughes
== END 2018-11-29 16:57 | disposition home health service (06) | DRG 981 ==
LOC: SUPCPDRO → ED 14:27 → EDIPHOLD 19:49 → 3N 11-19 00:10
PROVIDERS: ADMIT Internal Medicine; ATTEND Internal Medicine
CPT/HCPCS: 71010; 71045; 80048; 80053; 81001; 82550; 82553; 82805; 82948; 83036; 83605; 83880; 84484; 85025; 85027; 85610; 85730; 86850; 86900; 86901; 87040; 87077; 87088; 87186; 87275; 87276; 87324; 87449; 87804; 93005; 93010; 93306; 93971; 96365; 96366; 96375; 97116; 97162; 97530; 99285; 99291; A9270; C9113; J0330; J0690; J0696; J1170; J1644; J1650; J1815; J2370; J2405; J2440; J2543; J3010; J3370; J7030; J7040; S0164; XXXXX

== ENCOUNTER 2019-04-09 13:59 | Observation (INO) ==
[2019-04-09] MEDS ORDERED: SODIUM CHLORIDE 0.9% INJ SCH (16:45)
--- NOTE | 2019-04-09 17:57 | Diag Imaging Result Doc PS360 ---
EXAM: CHEST-2 VIEWS 04/09/2019 HISTORY: chest pain TECHNIQUE: PA and lateral chest COMMENT: There is a calcified granuloma in the left lower lobe. There has been sternotomy and anterior mediastinal surgical clips are present. The appearance of the chest has not changed significantly since 04/01/2019. IMPRESSION: No acute disease. Electronically signed by Jaswant Stephens 04/09/2019 5:55 PM
[2019-04-09] MEDS: PEPCID IV SCH (18:04)
[2019-04-09] MEDS: ASPIRIN PO SCH (18:05)
[2019-04-09] MEDS ORDERED: PRAVACHOL PO SCH (21:00)
[2019-04-09] MEDS: TOPROL XL PO SCH (21:50)
--- NOTE | 2019-04-09 22:18 | HISTORY AND PHYSICAL ---
CHIEF COMPLAINT: Chest is burning for the last few days. HISTORY OF PRESENT ILLNESS: He is 68-year-old male who came to my office. Chest is burning. EKG showed right bundle with T-wave inversions. He has existing heart disease. Admitted to the [facility] for observation, rule out [place] and rule out ischemic heart disease. He denies to have any shortness of breath, PND, orthopnea. No swelling of feet. PAST MEDICAL HISTORY: Abdominal aortic aneurysm 2.8 cm, carotid artery stenosis on the right side, 60%, CAD. Last stress test June 2016 is negative. Hypertension, hypothyroidism, nicotine dependency, PAD, hyperlipidemia, elevated PSA, right lacunar stroke. PAST SURGICAL HISTORY: C-spine surgery, back surgery, right foot surgery, status post right plantar wart excision, CABG 02/2014, status post right femoral-tibial in situ graft, cardiac stent in circumflex 2010. ALLERGIES: Bactrim. MEDICATIONS: Aspirin 325 daily, Pletal 50 p.o. b.i.d., Plavix 75 daily, hydroxyzine 50 mg 3 times daily, Mobic 15 daily, Protonix 40 daily, Pravachol 40 daily, Synthroid 150 mcg daily, Ultram 50 twice daily. SOCIAL HISTORY: , 5 children. Living in [place]. No smoking. No alcohol. FAMILY HISTORY: Mother at 63 from diabetes complications Father from [place] REVIEW OF SYSTEMS: HEENT: No headache. No vision problem. No earache. No sore throat. Neck: No neck pain, no goiter, no lymphadenopathy. Cardiopulmonary: Chest pain nonexertional. No radiation. No shortness of breath, PND, orthopnea. Gastrointestinal: No nausea, vomiting, abdominal pain. Genitourinary: No history of hesitancy, frequency, dysuria. No swelling of feet. No joint pain. Neurologic: No focal symptoms or weakness. PHYSICAL EXAMINATION: VITAL SIGNS: Temperature is 97 degrees, pulse 73, blood pressure 160/90, 5 feet 10 inches, 220 pounds. HEENT EXAM: Within normal limits. NECK: Supple. No lymphadenopathy. No goiter. CHEST: Bilateral air entry. CARDIOVASCULAR: Heart sounds are regular. ABDOMEN: Belly is soft, nontender. Good bowel sounds. EXTREMITIES: No peripheral edema or cyanosis. NEUROLOGIC: No obvious neurological deficits. INVESTIGATIONS: Cardiac enzymes were negative. Abnormal EKG. ASSESSMENT AND PLAN: 1. A 68-year-old male with a known history of coronary artery disease status post stents, coronary artery bypass graft in 02/2014, last stress test 06/2016 came in with chest pain, abnormal EKG. Follow up on the cardiac enzymes. If they rule out, we will do a stress test. 2. Recently has urinary tract infection due to benign prostatic hyperplasia under the care of Dr. Siddiqui. Previous biopsy was negative. 3. Right knee pain due to peripheral arterial disease status post in situ femoral-tibial graft. 4. Hypothyroidism on Synthroid 150 mcg daily. 5. Coronary artery disease. Continue aspirin, Plavix and metoprolol. 6. Hypertension. Hydralazine 50 t.i.d. 7. Benign prostatic hyperplasia on Flomax. 8. Hyperlipidemia on Pravachol 40 daily. We will follow up. cc: Gurwinder Wallace MD MTDD
--- NOTE | 2019-04-10 06:46 | EKG Report ---
Test Performed on : 04/09/2019 8:08:44 PM Test Reason : Cp Blood Pressure : / mmHG Vent. Rate : 067 BPM Atrial Rate : 067 BPM P-R Int : 182 ms QRS Dur : 152 ms QT Int : 456 ms P-R-T Axes : 064 -01 052 degrees QTc Int : 481 ms Normal sinus rhythm. Possible Left atrial enlargement Right bundle branch block Abnormal ECG When compared with ECG of 09-APR-2019 16:41, (Unconfirmed) No significant change was found Confirmed by Florencio LAZCANO, Mike Armendariz ([id number]) on 04/10/2019 12:30:12 PM
--- NOTE | 2019-04-10 06:46 | EKG Report ---
Test Performed on : 04/09/2019 4:41:51 PM Test Reason : chest pain Blood Pressure : / mmHG Vent. Rate : 061 BPM Atrial Rate : 061 BPM P-R Int : 172 ms QRS Dur : 152 ms QT Int : 474 ms P-R-T Axes : 068 009 063 degrees QTc Int : 477 ms Normal sinus rhythm. Possible Left atrial enlargement Right bundle branch block Abnormal ECG When compared with ECG of 01-APR-2019 10:14, (Unconfirmed) T wave inversion now evident in Anterior leads Confirmed by Florencio LAZCANO, Mike Armendariz ([id number]) on 04/10/2019 12:30:09 PM
[2019-04-10] MEDS ORDERED: SYNTHROID PO SCH (07:00)
[2019-04-10] MEDS ORDERED: LEXISCAN ONE (08:18)
[2019-04-10] MEDS ORDERED: ASPIRIN PO SCH (09:00)
[2019-04-10] MEDS ORDERED: FLOMAX PO SCH (09:00)
[2019-04-10] MEDS ORDERED: PLAVIX PO SCH (09:00)
[2019-04-10] MEDS: PEPCID IV SCH (10:44)
[2019-04-10] MEDS: ASPIRIN PO SCH (10:44)
[2019-04-10] MEDS: TOPROL XL PO SCH (10:44)
[2019-04-10] MEDS: APRESOLINE PO SCH ×3 (10:46→17:37)
--- NOTE | 2019-04-10 14:36 | Diag Imaging Result Document ---
PROCEDURE NAME: MYOCARDIAL PERF SCAN, STR/REST - 04/10/2019 PROCEDURE: Lexiscan sestamibi interpretation. SUMMARY: The patient was administered 14.8 mCi of technetium 99-m sestamibi after which resting cardiac images were obtained. The patient was subsequently administered Lexiscan 0.4 mg intravenously, after which the heart rate went from 58 beats per minute to 90 beats per minute. The blood pressure went from 183/99 to 158/77. With Lexiscan, the patient denied chest discomfort. Following the administration of Lexiscan, the patient was administered 43.6 mCi of technetium-99m sestamibi, after which gated stress cardiac images were obtained. Baseline ECG demonstrated sinus bradycardia and right bundle branch block. With Lexiscan, there were no diagnostic ST-segment changes. SPECT images were reconstructed in the short, horizontal, and vertical long axis. Review of these images demonstrated homogeneous uptake of radiopharmaceutical on both stress and resting images. Gated images demonstrate a calculated left ventricular ejection fraction of 55% with symmetrical wall motion. CONCLUSIONS: 1. Adequate response to Lexiscan. 2. Clinically negative for chest pain. 3. Electrocardiographically negative for Lexiscan-induced myocardial ischemia. 4. Normal Lexiscan sestamibi images. cc: MD Gurwinder Glaser MD
[2019-04-10 15:57] VITALS: BP 176/81
--- NOTE | 2019-04-12 19:00 | DISCHARGE SUMMARY ---
ADMISSION DATE: 04/09/2019 DISCHARGE DATE: 04/10/2019 DISCHARGING DIAGNOSIS: Chest pain atypical. SECONDARY DIAGNOSIS: 1. Abdominal aortic aneurysm 2.8 cm. 2. Carotid artery stenosis right side 60%, coronary artery disease last stress test June 2016, hypertension, hypothyroidism, nicotine dependency, peripheral arterial disease, hyperlipidemia, right lacunar stroke, benign prostatic hypertrophy under the care of Dr. Siddiqui, recently treated urinary tract infection with Keflex and other problems are status post right femoral tibial in situ graft, cardiac stent in circumflex 2010. BRIEF HISTORY: Please see the H and P that was done on 04/09/2019. In brief he is 68-year-old male with a known history of CAD, recently treated for urinary tract infection, insect bite on the left side of the abdomen, came in with chest is burning. EKG showed T-wave inversion in the V2, V3 with right bundle branch block. In light of existing heart disease and chest pain admitted to the hospital for CIC, rule out [place] and further workup. HOSPITAL COURSE: The patient was treated conservatively. Follow up cardiac enzymes were negative. EKGs changes are nondiagnostic. The patient had a myocardial perfusion scan reported. No Lexiscan induced ischemia. The patient was discharged home stable. Chest x-ray no acute disease. EKG normal sinus, right bundle branch block with T-wave inversion in the V3 to V6. DISCHARGE INSTRUCTIONS: Aspirin 325 daily, metoprolol-XL 50 p.o. b.i.d., hydralazine 50 p.o. t.i.d., Synthroid 150 mcg daily, Plavix 75 daily, Flomax 0.4 daily, Icar C Plus 1 tablet daily, Pravachol 80 mg daily. FOLLOWUP: In my office 2 weeks. cc: Gurwinder Wallace MD
== END 2019-04-10 17:30 | disposition home or self-care (01) ==
LOC: DIRADM 13:59 → INTOOBSV 13:59 → 3S 16:13
PROVIDERS: ADMIT Internal Medicine; ATTEND Internal Medicine